=== PATIENT | male | born 1960 | race Hispanic/Latino ===

== ENCOUNTER → 2020-05-05 | Outpatient (CLI) | payer OTHER | END | disposition home or self-care (01) | LOC: RAD 11:48 | PROVIDERS: ATTEND Orthopaedic Surgery | DX: M17.11 Unilateral primary osteoarthritis, right knee (principal) | CPT/HCPCS: 73700 ==

== ENCOUNTER 2020-06-07 08:00 | Inpatient (IN) | payer MEDICARE ==
[2020-06-03 16:20] VITALS: BP 138/85
[2020-06-03 16:55] LABS: BASOPHIL # 0.1 10^3/uL (0.0-0.1); BASOPHIL % 0.5 % (0.0-0.2); EOSINOPHIL # 0.3 10^3/uL (0.0-0.2); EOSINOPHIL % 3.1 % (0.0-5.0); LYMPHOCYTES # 2.36 10^3/uL1 (1.0-4.8); LYMPHOCYTES % 22.6 % (24.0-44.0); MEAN CORP HGB 31.2 pg (26-34); MONOCYTES # 0.8 10^3/uL (0.3-0.8); MONOCYTES % 7.9 % (5.0-12.0); NEUTROPHIL # 6.8 10^3/uL (1.8-7.7); NEUTROPHILS % 65.5 % (41.0-85.0); PLATELET COUNT 303 10^3/uL (150-400); RED CELL DISTRIBUTION WIDTH 13.2 % (11.5-14.5)
[2020-06-03 17:11] LABS: CALCIUM 9.3 mg/dL (8.4-10.5); CARBON DIOXIDE 22.6 mmol/L (20.0-32)
[2020-06-07] VITALS (13 sets, daily range): BP systolic 110–152; BP diastolic 56–85
[~2020-06-07] VITALS: Ht 172.7 cm; Wt 112.5 kg
[2020-06-07] MEDS: LACTATED RINGERS 1,000 ML IV SCH ×2 (06:14→16:00)
--- NOTE | 2020-06-07 06:27 | PCM.EKG ---
[facility] Test Date: 2020-06-07 Test Time: 06:05:28 Pat Name: TONY ALCANTAR Department: Room: Gender: M Braille Translator: MICHELLE : 1960 Requested By: DAPHNEY FERRO Order Number: [id number] Reading MD: Measurements Intervals Sultana Rate: 89 P: 49 NM: 178 QRS: 28 QRSD: 116 T: 39 QT: 376 QTc: 458 Interpretive Statements Sinus rhythm Ventricular premature complex Nonspecific intraventricular conduction delay No previous ECG available for comparison Please click the below link to view image of tracing.
[~2020-06-07 08:00] MED LIST: ACET1TAB34 PO; AMIT150T PO; ANCEF ONE; BACTROBAN OINTMENT TP SCH; CILO100T PO; DIPRIVAN IV ONE; EXPAREL 266 MG/20 ML VIAL IJ ONE; GABA600T7 PO; HYDR200T5 PO; HYDR25TA PO; LISI30TA4 PO; METF500T17 PO; METH25VI22 IJ; NS 100ML 100 ML IV ONE; NS 250ML 250 ML IV ONE; NS 3000ML IRR IR ONE; SERT50TA PO; SODIUM CHLORIDE IRR BOTTLE IR ONE; SUBLIMAZE ONE; TEST200V3 IM; VERSED ONE; WATER ONE
[2020-06-07] MEDS ORDERED: ULTRAM PO SCH (09:00)
[2020-06-07] MEDS ORDERED: LACTATED RINGERS 1,000 ML IV SCH (09:00)
[2020-06-07] MEDS: PEPCID PO SCH (09:00)
[2020-06-07] MEDS ORDERED: CEPACOL SORE THROAT LOZENGE MM PRN (09:00)
[2020-06-07] MEDS: COLACE PO SCH (09:00)
[2020-06-07] MEDS ORDERED: ULTRAM PO PRN (09:00)
--- NOTE | 2020-06-07 09:19 | PCM.HP ---
History of Present Illness Reason for Visit: (1) Osteoarthritis of right knee ICD Code: M17.11 - Unilateral primary osteoarthritis, right knee SNOMED: [id number] Was this Problem Present on Ad: Yes-DX present @time ofIP Hx of Present Illness patient complains of worsening knee pain for the past 2 years. Denies any injury to knee. Patient has tried cortisone injection, physical therapy and a knee brace with little relief. Patient takes Tylenol #3 for joint pain. Patient has a history of smoking. Lives at home with . No assistive devices. Review of Systems Constitutional: No: Fever, Chills, Sweats, Weakness, Malaise, Other Eyes: No: Pain, Vision change, Conjunctivae inflammation, Eyelid inflammation, Other, Redness ENT: No: Ear pain, Ear discharge, Nose pain, Nose discharge, Nose congestion, M outh pain, Mouth swelling, Throat pain, Throat swelling, Other Respiratory: No: Cough, Dry, Shortness of breath, SOB with excertion, Wheezing, Hemoptysis, Pleuritic Pain, Sputum, Wheezing, Other Cardiovascular: No: Chest Pain, Palpitations, Orthopnea, Paroxysmal Noc. Dyspnea, Edema, Lt Headedness, Other Gastrointestinal: No: Nausea, Vomiting, Abdominal Pain, Diarrhea, Constipation, Melena, Hematochezia, Other Genitourinary: No Dysuria, No Frequency, No Incontinence, No Hematuria, No Retention, No Other Musculoskeletal: leg pain (right knee pain) Skin: No: Rash, Lesions, Jaundice, Bruising, Other Neurological: No: Weakness, Numbness, Incoordination, Change in speech, Confusion, Seizures, Other Allergies: Coded Allergies: No Known Allergies (Unverified , 06/03/20) Scheduled Acetaminophen With Codeine (Tylenol-Cod #3 Tablet), 1 TAB PO TID, (Reported) Amitriptyline Hcl (Amitriptyline Hcl), 2 TAB PO HS, (Reported) Cilostazol (Cilostazol), 0.5 TAB PO BID, (Reported) Gabapentin (Gabapentin), 2 TAB PO TID, (Reported) Hydroxychloroquine Sulfate (Hydroxychloroquine Sulfate), 1 TAB PO BID, (Reported) Lisinopril (Lisinopril), 1 TAB PO DAILY, (Reported) Metformin Hcl (Metformin Hcl), 1 TAB PO BID, (Reported) Methotrexate Sodium (Methotrexate), 50 MG IJ Q7D, (Reported) Sertraline Hcl (Zoloft), 1 TAB PO HS, (Reported) Testosterone Cypionate (Testosterone Cypionate), 200 MG IM Q7D, (Reported) Scheduled PRN Hydroxyzine Hcl (Hydroxyzine Hcl), 2 TAB PO TID PRN for ANXIETY, (Reported) VTE VTE Risk Total Score: 3 VTE Risk Score VTE Risk: Score 0-1 = Low Risk (Aggressive mobilization; early ambulation; no VTE prophylaxis required) Score 2: Moderate Risk (Intermittent/Pneumatic Compression Device OR Lovenox/Heparin/Coumadin) Score 3-4: High Risk (Intermittent/Pneumatic Compression Device AND Lovenox/Heparin/Coumadin) Score > or =5: Highest Risk (Intermittent/Pneumatic Compression Device AND Lovenox/Heparin/Coumadin) VTE VTE Present on Admission: No Currently receiving anticoagul: No VTE Risk Total Score: 3 Exam Vital Signs Vital Signs Date Time Temp Pulse Resp B/P (MAP) Pulse Ox O2 Delivery O2 Flow Rate FiO2 06/07/20 07:47 79 18 132/67 (88) 97 Nasal Canula 2 06/07/20 06:07 96.7 General Appearance: Alert, Oriented X3, Cooperative, No acute distress HEENT: Atraumatic, PERRLA Respiratory: Clear to auscultation, Normal air movement Cardiovascular: Regular rate, Normal S1, Normal S2, No murmurs Abdominal: Normal bowel sounds, Soft, No hepatospenomegaly Extremities: No clubbing, No cyanosis, No edema, Normal pulses, Other (right knee 1-2 + effusion, full extension, 110 degrees flexion. Moderate crepitation.) Skin: No rash, No breakdown, No lesions Neuro: Normal gait, Normal speech Assessment/Plan Assessment/Plan Problems: (1) Osteoarthritis of right knee ICD Code: M17.11 - Unilateral primary osteoarthritis, right knee SNOMED: [id number] Patient History: Cerebrovascular disorder G8 FATHER, , Age:55 Hypertension G8 SISTER No known health problems G8 BROTHER G8 BROTHER G8 BROTHER G8 BROTHER G8 BROTHER G8 SISTER G8 SISTER 19 CHILD 19 CHILD 19 CHILD 19 CHILD 19 CHILD No Family History of: Alzheimer's disease Asthma Chronic obstructive pulmonary disease Congestive heart failure Diabetes insipidus Diabetes mellitus Parkinson's disease Plan Right knee OA- surgery planned for today of right TKA admit to floor after surgery continue medications. Scheduled pain medication and PRN. PT/OT- eval and treat, WBAT cindy BOLTON KRISTEN H NP Jun 07, 2020 09:19
[2020-06-07] MEDS ORDERED: METHOTREXATE IJ SCH (09:30)
[2020-06-07] MEDS ORDERED: DILAUDID IV PRN ×2 (09:30→11:30)
[2020-06-07] MEDS ORDERED: TYLENOL #4 PO PRN (09:30)
[2020-06-07] MEDS ORDERED: BRIDION IV ONE (10:20)
[2020-06-07] MEDS ORDERED: DECADRON ONE (11:09)
[2020-06-07] MEDS: NS 1000ML 1,000 ML IV SCH ×2 (11:10→21:49)
[2020-06-07] MEDS ORDERED: TRANEXAMIC ACID ONE (11:10)
[2020-06-07] MEDS ORDERED: LIDOCAINE 2% VIAL ONE (11:10)
[2020-06-07] MEDS ORDERED: ZOFRAN ONE (11:10)
[2020-06-07] MEDS ORDERED: ROCURONIUM BROMIDE IV ONE (11:11)
[2020-06-07] MEDS ORDERED: NS 1000ML 1,000 ML ONE (11:12)
--- NOTE | 2020-06-07 11:21 | OPH ---
DATE OF SURGERY: 06/07/2020 PREOPERATIVE DIAGNOSIS: Osteoarthritis of the right knee. POSTOPERATIVE DIAGNOSIS: Osteoarthritis of the right knee. OPERATIVE PROCEDURE: Right total knee arthroplasty using Medacta Sphere knee, size 5 femoral component, a size 5 tibial component, a 14 mm insert. All components were cemented with antibiotic containing cement. SURGEON: Noah Henderson MD ANESTHESIA: General endotracheal. TOURNIQUET TIME: 68 minutes at 300 mmHg. DRAINS: None. BLOOD LOSS: 300 mL. DESCRIPTION OF INDICATIONS: The patient is a 59-year-old male. He has had pain about the right knee for the last 2 years, getting progressively worse. He also has a history of RA. He sees Dr. Herman in [place]. He takes Tylenol No. 3 as well as gabapentin and methotrexate and hydroxychloroquine. The patient has pain at night as well as pain with just household ambulation. He is no better with physical therapy, bracing, cortisone injections. He complains of limping and inability to do his daily activities. The patient's exam shows that he has a 1-2+ effusion about the right knee. He has full extension with about 110 degrees of flexion, mild crepitation, good medial and lateral stability. The x-rays show that he is [id number] medially with some peripheral osteophytes about the patellofemoral joint. Because of the degree of pain as well as his limitations and failure of conservative treatment, he was taken to the operating room for total knee arthroplasty. DESCRIPTION OF PROCEDURE: The patient was placed on the operating table in the supine position. A general endotracheal anesthetic was induced without difficulty. The patient had the right thigh padded and the right lower extremity was sterilely prepped and draped. The leg was exsanguinated and then the tourniquet was inflated to 300 mmHg. The patient had the knee flexed to 90 degrees. Anterior incision was made centered over the patella. Incision was taken through the skin and the subcutaneous tissues. Full-thickness flaps were developed medially and laterally. A medial parapatellar arthrotomy was performed and the patella was deviated laterally. The capsule and the MCL were released around the posteromedial corner of his proximal tibia. Medial and lateral meniscectomies were performed. His anterior and posterior cruciate ligaments were excised. The patient had the Holograam femoral cutting guide placed about the distal femur. The distal femoral cut was then made with the power saw. The patient had the #2 jig size 5 applied to the distal femur and held into position with 2 pins and 2 screws. The anterior and posterior femoral cuts as well as the chamfer cuts were made. The patient then had the tibia subluxed anteriorly using the bent knee retractor. The tibial guide was placed about the proximal tibia and held into position with multiple pins. The proximal tibia cut was made with the power saw. The patient had the flexion and extension blocks used and the 10 mm block seemed to have good fit. The patient then had the tibial trial sized and the size 5 tibia had good coverage. The central drill hole was made with the reamer and then the cruciate punch was used to stabilize the trial tibial component. The patient then had the size 5 femoral component impacted. We started with a size 10 insert and worked up to a 14. He seemed to have some anterior and posterior instability at the smaller thickness inserts, the 14 had good stability and allowed full extension. The patient then had the patella everted. There was excellent tracking of the patella, minimal articular cartilage damage about the patella, so we trimmed the peripheral osteophytes and cauterized the edge of the patella. The patient then had the final medial and lateral femoral drill holes made. The femoral sulcus cut was made. The patient had the wounds copiously irrigated and the bone ends were dried. A size 5 tibial component was cemented into position. The 14 mm insert was then impacted into position and secured with an anterior screw. The size 5 femoral component was likewise cemented into position using antibiotic-containing cement. Once all the excess cement was removed and the cement had hardened, then the tourniquet was released and the bleeding was controlled with the Aquamantys. The joint was irrigated with Betadine-containing solution for 3 minutes. The patient then had the capsule closed with a #2 PDS in an interrupted [id number] manner. The patient's subcutaneous was closed with 2-0 barbed Monocryl in a running manner and then the skin was closed with jarad. A suction Prevena type dressing was applied. The patient was extubated in the operating room, sent to recovery in stable condition. Noah Henderson MD DR: ANIA/nicola JOB# [id number]
[2020-06-07] MEDS ORDERED: PHENERGAN IV PRN (11:30)
[2020-06-07] MEDS ORDERED: SUBLIMAZE IV PRN (11:30)
[2020-06-07] MEDS ORDERED: TYLENOL #4 PO SCH (11:30)
--- NOTE | 2020-06-07 11:38 | DIREP ---
PROCEDURE:XRAY KNEE 2 VWS-RT COMPARISON:None. INDICATIONS:post surgical TKR FINDINGS: BONES:AP and lateral views of the right knee. A 2 component right knee arthroplasty noted. The right knee is in mild valgus angulation. Alignment is satisfactory. Postoperative skin jarad, joint effusion and postoperative air noted. There is mild periarticular soft tissue swelling seen. The tibial component is likely cemented. JOINTS:Small joint effusion with postoperative drain and postoperative air identified. SOFT TISSUES:Periarticular mild soft tissue swelling seen. OTHER:No additional findings. CONCLUSION:Satisfactory appearance of the right knee arthroplasty. Dictated by: Jefe Zamudio MD on 06/07/2020 at 11:35 AM
--- NOTE | 2020-06-07 12:05 | NUR ---
ARRIVAL PT ARRIVED TO ROOM 337, SPECIAL V/S STARTED, NO S/S OF DISTRESS NOTED. WILL CONT TO MONITOR, CALL LIGHT WITHIN REACH. BED LOCKED AND LOW POSITION.
[2020-06-07] MEDS ORDERED: ANCEF 2 GM/D5W 50ML IV SCH (14:00)
[2020-06-07] MEDS ORDERED: TYLENOL #3 PO SCH (15:00)
[2020-06-07] MEDS: TYLENOL #4 PO PRN ×2 (15:18→19:35)
[2020-06-07] MEDS: ANCEF 1 GM in NS 100ML 100 ML IV SCH ×2 (15:30→21:59)
--- NOTE | 2020-06-07 18:08 | PRM.PN ---
Subjective Subjective Date: Jun 07, 2020 Time: 18:08 Subjective Awake and alert VSS NVM+ Stable Pain ok now Patient History: Cerebrovascular disorder G8 FATHER, , Age:55 Hypertension G8 SISTER No known health problems G8 BROTHER G8 BROTHER G8 BROTHER G8 BROTHER G8 BROTHER G8 SISTER G8 SISTER 19 CHILD 19 CHILD 19 CHILD 19 CHILD 19 CHILD No Family History of: Alzheimer's disease Asthma Chronic obstructive pulmonary disease Congestive heart failure Diabetes insipidus Diabetes mellitus Parkinson's disease VTE VTE Risk Total Score: 3 VTE Risk Score VTE Risk: Score 0-1 = Low Risk (Aggressive mobilization; early ambulation; no VTE prophylaxis required) Score 2: Moderate Risk (Intermittent/Pneumatic Compression Device OR Lovenox/Heparin/Coumadin) Score 3-4: High Risk (Intermittent/Pneumatic Compression Device AND Lovenox/Heparin/Coumadin) Score > or =5: Highest Risk (Intermittent/Pneumatic Compression Device AND Lovenox/Heparin/Coumadin) Review of Systems Constitutional: No: Fever, Chills, Sweats, Weakness, Malaise, Other Eyes: No: Pain, Vision change, Conjunctivae inflammation, Eyelid inflammation, Other, Redness ENT: No: Ear pain, Ear discharge, Nose pain, Nose discharge, Nose congestion, Mouth pain, Mouth swelling, Throat pain, Throat swelling, Other Respiratory: No: Cough, Dry, Shortness of breath, SOB with excertion, Wheezing, Hemoptysis, Pleuritic Pain, Sputum, Wheezing, Other Cardiovascular: No: Chest Pain, Palpitations, Orthopnea, Paroxysmal Noc. Dyspnea, Edema, Lt Headedness, Other Gastrointestinal: No: Nausea, Vomiting, Abdominal Pain, Diarrhea, Constipation, Melena, Hematochezia, Other Genitourinary: No Dysuria, No Frequency, No Incontinence, No Hematuria, No Retention, No Other Musculoskeletal: leg pain (right knee pain) Skin: No: Rash, Lesions, Jaundice, Bruising, Other Neurological: No: Weakness, Numbness, Incoordination, Change in speech, Confusion, Seizures, Other Allergies: Coded Allergies: No Known Allergies (Unverified , 06/03/20) Scheduled Acetaminophen With Codeine (Tylenol-Cod #3 Tablet), 1 TAB PO TID, (Reported) Amitriptyline Hcl (Amitriptyline Hcl), 2 TAB PO HS, (Reported) Cilostazol (Cilostazol), 0.5 TAB PO BID, (Reported) Gabapentin (Gabapentin), 2 TAB PO TID, (Reported) Hydroxychloroquine Sulfate (Hydroxychloroquine Sulfate), 1 TAB PO BID, (Reported) Lisinopril (Lisinopril), 1 TAB PO DAILY, (Reported) Metformin Hcl (Metformin Hcl), 1 TAB PO BID, (Reported) Methotrexate Sodium (Methotrexate), 50 MG IJ Q7D, (Reported) Sertraline Hcl (Zoloft), 1 TAB PO HS, (Reported) Testosterone Cypionate (Testosterone Cypionate), 200 MG IM Q7D, (Reported) Scheduled PRN Hydroxyzine Hcl (Hydroxyzine Hcl), 2 TAB PO TID PRN for ANXIETY, (Reported) Objective Vitals and I/O Vital Sign - Last 24 Hours 06/07/20 06/07/20 06/07/20 06/07/20 06:07 06:07 07:36 07:40 Temp 96.7 Pulse 94 79 64 Resp 18 18 18 B/P (MAP) 113/67 (82) 131/83 (99) 122/71 (88) Pulse Ox 97 100 99 O2 Delivery Room Air Room Air Nasal Canula Nasal Canula O2 Flow Rate 2 2 06/07/20 06/07/20 06/07/20 06/07/20 07:47 10:55 10:55 11:05 Temp 97.8 97.8 Pulse 79 84 82 Resp 18 16 18 B/P (MAP) 132/67 (88) 110/56 (74) 121/61 (81) Pulse Ox 97 100 100 O2 Delivery Nasal Canula Non-Rebreather Non-Rebreather O2 Flow Rate 2 15 15 10 06/07/20 06/07/20 06/07/20 06/07/20 11:15 11:25 11:35 11:45 Temp 97.6 97.6 98.0 98.6 Pulse 78 81 77 78 Resp 18 19 18 17 B/P (MAP) 113/63 (80) 142/84 (103) 137/85 (102) 144/85 (104) Pulse Ox 100 100 97 95 O2 Delivery Non-Rebreather Non-Rebreather Room Air Room Air O2 Flow Rate 10 10 06/07/20 06/07/20 06/07/2031/20 11:55 12:05 12:38 13:17 Temp 98.0 97.7 Pulse 74 76 Resp 18 19 16 B/P (MAP) 137/80 (99) 134/80 (98) Pulse Ox 97 97 97 O2 Delivery Room Air Room Air Room Air General: Alert, Oriented X3, Cooperative, No acute distress HEENT: Atraumatic, PERRLA Lungs: Clear to auscultation, Normal air movement Heart: Regular rate, Normal S1, Normal S2, No murmurs Abdomen: Normal bowel sounds, Soft, No hepatospenomegaly Extremities: No clubbing, No cyanosis, No edema, Normal pulses, Other (right knee 1-2 + effusion, full extension, 110 degrees flexion. Moderate crepitation.) Neuro: Normal gait, Normal speech All Results(Lab/Rad) Laboratory Tests Test 06/07/20 06:16 06/07/20 10:58 Bedside Glucose 141 150 Current Medications Medications (Trade) Dose Ordered Sig/Justus Route PRN Reason Start Time Stop Time Status Last Admin Dose Admin Sodium Chloride 250 ml @ ud STK-MED ONCE IV 06/04/20 11:11 06/04/20 11:12 DC Cefazolin Sodium (Ancef) 1 gm STK-MED ONCE .ROUTE 06/04/20 11:11 06/04/20 11:13 DC Sodium Chloride 100 ml @ ud STK-MED ONCE IV 06/04/20 12:47 06/04/20 12:49 DC Mupirocin (Bactroban Ointment) 1 gm OT TP 06/07/20 06:00 07/07/20 05:59 06/07/20 06:23 Sodium Chloride (Sodium Chloride Irr Bottle) 1,000 ml STK-MED ONCE IR 06/07/20 07:02 06/07/20 07:04 DC Sterile Water (Water) 1,000 ml STK-MED ONCE .ROUTE 06/07/20 07:02 06/07/20 07:04 DC Sodium Chloride 100 ml @ ud STK-MED ONCE IV 06/07/20 07:02 06/07/20 07:04 DC Sodium Chloride 250 ml @ ud STK-MED ONCE IV 06/07/20 07:02 06/07/20 07:04 DC Sodium Chloride (NS 3000ml Irr) 3,000 ml STK-MED ONCE IR 06/07/20 07:02 06/07/20 07:04 DC Fentanyl Citrate (Sublimaze) 50 mcg STK-MED ONCE .ROUTE 06/07/20 07:29 06/07/20 07:31 DC Propofol (Diprivan) 200 mg STK-MED ONCE IV 06/07/20 07:57 06/07/20 08:00 DC Tramadol HCl (Ultram) 50 mg Q6H PO 06/07/20 09:00 06/07/20 09:22 DC Tramadol HCl (Ultram) 100 mg Q6H PRN PO PAIN 4 - 6 06/07/20 09:00 06/07/20 09:22 DC Rivaroxaban (Xarelto) 10 mg DAILY PO 06/08/20 09:00 07/08/20 08:59 Docusate Sodium (Colace) 100 mg DAILY PO 06/07/20 09:00 07/07/20 08:59 Throat Lozenges (Cepacol Sore Throat Lozenge) 1 each PRN PRN MM SORE THROAT 06/07/20 09:00 07/07/20 08:59 Famotidine (Pepcid) 20 mg DAILY PO 06/07/20 09:00 07/07/20 08:59 Cefazolin Sodium/ Dextrose (Ancef 2 Gm/D5W 50ml) 2 gm Q8 IV 06/07/20 14:00 06/07/20 13:59 DC Acetaminophen/ Codeine Phosphate (Tylenol #3) 1 each TID PO 06/07/20 15:00 06/07/20 11:06 DC Hydroxychloroquine Sulfate (Plaquenil) 200 mg BID PO 06/07/20 21:00 07/07/20 20:59 Future Hold Metformin HCl (Glucophage) 500 mg BID PO 06/07/20 21:00 07/07/20 20:59 Methotrexate (Methotrexate) 50 mg Q7D IJ 06/07/20 09:30 06/07/20 11:06 DC Sertraline HCl (Zoloft) 50 mg HS PO 06/07/20 21:00 07/07/20 20:59 Acetaminophen/ Codeine Phosphate (Tylenol #4) 1 tablet Q4H PRN PO PAIN 7 - 10 06/07/20 09:30 06/07/20 11:06 DC Hydromorphone HCl (Dilaudid) 1 mg Q4H PRN IV PAIN 7 - 10 06/07/20 09:30 06/07/20 11:06 DC Hydromorphone HCl (Dilaudid) 0.2 mg Q5M PRN IV PAIN 1 - 3 06/07/20 11:30 06/07/20 17:15 DC 06/07/20 11:35 Fentanyl Citrate (Sublimaze) 12.5 mcg Q5MIN PRN IV PAIN 06/07/20 11:30 06/07/20 17:15 DC Promethazine HCl (Phenergan) 12.5 mg PRN PRN IV NAUSEA / VOMITING 06/07/20 11:30 06/07/20 13:18 DC Acetaminophen/ Codeine Phosphate (Tylenol #4) 1 tablet Q4H PO 06/07/20 11:30 07/07/20 09:29 Hydromorphone HCl (Dilaudid) 3 mg Q4H PRN IV PAIN 7 - 10 06/07/20 11:30 07/07/20 11:29 Acetaminophen/ Codeine Phosphate (Tylenol #4) 2 tablet Q4H PRN PO PAIN 7 - 10 06/07/20 11:30 07/07/20 11:29 06/07/20 15:18 Lidocaine HCl (Lidocaine 2% Vial) 500 mg STK-MED ONCE .ROUTE 06/07/20 11:10 06/07/20 11:12 DC Tranexamic Acid (Tranexamic Acid) 1,000 mg STK-MED ONCE .ROUTE 06/07/20 11:10 06/07/20 11:12 DC Ondansetron HCl (Zofran) 4 mg STK-MED ONCE .ROUTE 06/07/20 11:10 06/07/20 11:12 DC Rocuronium Jenkins (Rocuronium Jenkins) 50 mg STK-MED ONCE IV 06/07/20 11:11 06/07/20 11:12 DC Sodium Chloride 1,000 ml @ ud STK-MED ONCE .ROUTE 06/07/20 11:12 06/07/20 11:14 DC Sodium Chloride 1,000 ml @ 100 mls/hr Q10H IV 06/07/20 11:00 07/07/20 10:59 06/07/20 11:10 Cefazolin Sodium 1 gm/Sodium Chloride 100 ml @ 100 mls/hr Q8 IV 06/07/20 14:00 06/08/20 06:59 06/07/20 15:30 Course Sepsis Screening Results: Posi: NEGATIVE Sepsis Qualifier/Stage: NO DEFINITE RISK Vitals & review Data Vital Sign - Last 24 Hours 06/07/20 06/07/20 06/07/20 06/07/20 06:07 06:07 07:36 07:40 Temp 96.7 Pulse 94 79 64 Resp 18 18 18 B/P (MAP) 113/67 (82) 131/83 (99) 122/71 (88) Pulse Ox 97 100 99 O2 Delivery Room Air Room Air Nasal Canula Nasal Canula O2 Flow Rate 2 2 06/07/20 06/07/20 06/07/20 06/07/20 07:47 10:55 10:55 11:05 Temp 97.8 97.8 Pulse 79 84 82 Resp 18 16 18 B/P (MAP) 132/67 (88) 110/56 (74) 121/61 (81) Pulse Ox 97 100 100 O2 Delivery Nasal Canula Non-Rebreather Non-Rebreather O2 Flow Rate 2 15 15 10 06/07/20 06/07/20 06/07/20 06/07/20 11:15 11:25 11:35 11:45 Temp 97.6 97.6 98.0 98.6 Pulse 78 81 77 78 Resp 18 19 18 17 B/P (MAP) 113/63 (80) 142/84 (103) 137/85 (102) 144/85 (104) Pulse Ox 100 100 97 95 O2 Delivery Non-Rebreather Non-Rebreather Room Air Room Air O2 Flow Rate 10 10 06/07/20 06/07/20 06/07/20 06/07/20 11:55 12:05 12:38 13:17 Temp 98.0 97.7 Pulse 74 76 Resp 18 19 16 B/P (MAP) 137/80 (99) 134/80 (98) Pulse Ox 97 97 97 O2 Delivery Room Air Room Air Room Air Laboratory Tests Test 06/07/20 06:16 06/07/20 10:58 Bedside Glucose 141 150 Current Medications Medications (Trade) Dose Ordered Sig/Justus PRN Reason Start Time Stop Time Status Last Admin Acetaminophen/ Codeine Phosphate (Tylenol #4) 1 tablet Q4H 06/07/20 11:30 07/07/20 09:29 Acetaminophen/ Codeine Phosphate (Tylenol #4) 2 tablet Q4H PRN PAIN 7 - 10 06/07/20 11:30 07/07/20 11:29 06/07/20 15:18 Cefazolin Sodium 1 gm/Sodium Chloride 100 ml @ 100 mls/hr Q8 06/07/20 14:00 06/08/20 06:59 06/07/20 15:30 Docusate Sodium (Colace) 100 mg DAILY 06/07/20 09:00 07/07/20 08:59 Famotidine (Pepcid) 20 mg DAILY 06/07/20 09:00 07/07/20 08:59 Hydromorphone HCl (Dilaudid) 3 mg Q4H PRN PAIN 7 - 10 06/07/20 11:30 07/07/20 11:29 Hydroxychloroquine Sulfate (Plaquenil) 200 mg BID 06/07/20 21:00 07/07/20 20:59 Future Hold Metformin HCl (Glucophage) 500 mg BID 06/07/20 21:00 07/07/20 20:59 Mupirocin (Bactroban Ointment) 1 gm OT 06/07/20 06:00 07/07/20 05:59 06/07/20 06:23 Rivaroxaban (Xarelto) 10 mg DAILY 06/08/20 09:00 07/08/20 08:59 Sertraline HCl (Zoloft) 50 mg HS 06/07/20 21:00 07/07/20 20:59 Sodium Chloride 1,000 ml @ 100 mls/hr Q10H 06/07/20 11:00 07/07/20 10:59 06/07/20 11:10 Throat Lozenges (Cepacol Sore Throat Lozenge) 1 each PRN PRN SORE THROAT 06/07/20 09:00 07/07/20 08:59 LEVEL 1 SEPSIS INFECTION CRITE: ABX Therapy, Recent Invasive Procedure LEVEL 2-SIRS (LIST ALL THAT AP: None/Not assessed O2 Sat by Pulse Oximetry: 97 Oxygen Flow Rate: 10 Assessment/Plan Assessment/Plan Assessment/Plan Right knee OA- surgery planned for today of right TKA admit to floor after surgery continue medications. Scheduled pain medication and PRN. PT/OT- eval and treat, WBcindy HERNANDEZ Plan Right knee OA- surgery planned for today of right TKA admit to floor after surgery continue medications. Scheduled pain medication and PRN. PT/OT- eval and treat, WBcindy HERNANDEZ DAVID M MD Jun 07, 2020 18:08
[2020-06-07] MEDS ORDERED: PLAQUENIL PO SCH (21:00)
[2020-06-07] MEDS: ZOLOFT PO SCH (21:50)
[2020-06-07] MEDS: GLUCOPHAGE PO SCH (21:50)
[2020-06-07] MEDS ORDERED: NEURONTIN PO SCH (23:30)
[2020-06-07] MEDS ORDERED: ELAVIL PO SCH (23:30)
[2020-06-07] MEDS ORDERED: ELAVIL ONE (23:31)
[2020-06-07] MEDS: ELAVIL PO SCH (23:35)
[2020-06-07] MEDS: NEURONTIN PO SCH (23:35)
[2020-06-07] MEDS: DILAUDID IV PRN (23:53)
[2020-06-08 01:43] VITALS: BP 158/80
[2020-06-08 05:10] VITALS: BP 154/82
[2020-06-08 05:27] LABS: MEAN CORP HGB 31.8 pg (26-34); RED CELL DISTRIBUTION WIDTH 13.3 % (11.5-14.5)
[2020-06-08 05:46] LABS: CALCIUM 8.3 mg/dL (8.4-10.5); CARBON DIOXIDE 25.2 mmol/L (20.0-32)
[2020-06-08] MEDS: NS 1000ML 1,000 ML IV SCH ×2 (07:00→17:00)
[2020-06-08] MEDS: ANCEF 1 GM in NS 100ML 100 ML IV SCH (07:28)
[2020-06-08] MEDS: COLACE PO SCH (08:45)
[2020-06-08] MEDS: XARELTO PO SCH (08:45)
[2020-06-08] MEDS: GLUCOPHAGE PO SCH ×2 (08:45→21:43)
[2020-06-08] MEDS: NEURONTIN PO SCH ×3 (08:45→21:43)
[2020-06-08] MEDS: PEPCID PO SCH (08:45)
--- NOTE | 2020-06-08 09:06 | PRM.PN ---
Subjective Subjective Date: Jun 08, 2020 Time: 09:03 Subjective patient laying in bed, appetite good c/o some pain to right knee dressing intact labs reviewed; stable Patient History: Cerebrovascular disorder G8 FATHER, , Age:55 Hypertension G8 SISTER No known health problems G8 BROTHER G8 BROTHER G8 BROTHER G8 BROTHER G8 BROTHER G8 SISTER G8 SISTER 19 CHILD 19 CHILD 19 CHILD 19 CHILD 19 CHILD No Family History of: Alzheimer's disease Asthma Chronic obstructive pulmonary disease Congestive heart failure Diabetes insipidus Diabetes mellitus Parkinson's disease VTE VTE Risk Total Score: 3 VTE Risk Score VTE Risk: Score 0-1 = Low Risk (Aggressive mobilization; early ambulation; no VTE prophylaxis required) Score 2: Moderate Risk (Intermittent/Pneumatic Compression Device OR Lovenox/Heparin/Coumadin) Score 3-4: High Risk (Intermittent/Pneumatic Compression Device AND Lovenox/Heparin/Coumadin) Score > or =5: Highest Risk (Intermittent/Pneumatic Compression Device AND Lovenox/Heparin/Coumadin) Review of Systems Constitutional: No: Fever, Chills, Sweats, Weakness, Malaise, Other Eyes: No: Pain, Vision change, Conjunctivae inflammation, Eyelid inflammation, Other, Redness ENT: No: Ear pain, Ear discharge, Nose pain, Nose discharge, Nose congestion, Mouth pain, Mouth swelling, Throat pain, Throat swelling, Other Respiratory: No: Cough, Dry, Shortness of breath, SOB with excertion, Wheezing, Hemoptysis, Pleuritic Pain, Sputum, Wheezing, Other Cardiovascular: No: Chest Pain, Palpitations, Orthopnea, Paroxysmal Noc. Dyspnea, Edema, Lt Headedness, Other Gastrointestinal: No: Nausea, Vomiting, Abdominal Pain, Diarrhea, Constipation, Melena, Hematochezia, Other Genitourinary: No Dysuria, No Frequency, No Incontinence, No Hematuria, No Retention, No Other Musculoskeletal: leg pain (right knee pain) Skin: No: Rash, Lesions, Jaundice, Bruising, Other Neurological: No: Weakness, Numbness, Incoordination, Change in speech, Co nfusion, Seizures, Other Allergies: Coded Allergies: No Known Allergies (Unverified , 06/03/20) Scheduled Acetaminophen With Codeine (Tylenol-Cod #3 Tablet), 1 TAB PO TID, (Reported) Amitriptyline Hcl (Amitriptyline Hcl), 2 TAB PO HS, (Reported) Cilostazol (Cilostazol), 0.5 TAB PO BID, (Reported) Gabapentin (Gabapentin), 2 TAB PO TID, (Reported) Hydroxychloroquine Sulfate (Hydroxychloroquine Sulfate), 1 TAB PO BID, (Reported) Lisinopril (Lisinopril), 1 TAB PO DAILY, (Reported) Metformin Hcl (Metformin Hcl), 1 TAB PO BID, (Reported) Methotrexate Sodium (Methotrexate), 50 MG IJ Q7D, (Reported) Sertraline Hcl (Zoloft), 1 TAB PO HS, (Reported) Testosterone Cypionate (Testosterone Cypionate), 200 MG IM Q7D, (Reported) Scheduled PRN Hydroxyzine Hcl (Hydroxyzine Hcl), 2 TAB PO TID PRN for ANXIETY, (Reported) Objective Vitals and I/O Vital Sign - Last 24 Hours 06/07/20 06/07/20 06/07/20 06/07/20 10:55 10:55 11:05 11:15 Temp 97.8 97.8 97.6 Pulse 84 82 78 Resp 16 18 18 B/P (MAP) 110/56 (74) 121/61 (81) 113/63 (80) Pulse Ox 100 100 100 O2 Delivery Non-Rebreather Non-Rebreather Non-Rebreather O2 Flow Rate 15 15 10 10 06/07/20 06/07/20 06/07/20 06/07/20 11:25 11:35 11:45 11:55 Temp 97.6 98.0 98.6 98.0 Pulse 81 77 78 74 Resp 19 18 17 18 B/P (MAP) 142/84 (103) 137/85 (102) 144/85 (104) 137/80 (99) Pulse Ox 100 97 95 97 O2 Delivery Non-Rebreather Room Air Room Air Room Air O2 Flow Rate 10 06/07/20 06/07/20 06/07/20 06/07/20 12:05 12:38 13:17 20:45 Temp 97.7 98.4 Pulse 76 94 Resp 19 16 18 B/P (MAP) 134/80 (98) 152/61 (91) Pulse Ox 97 97 99 O2 Delivery Room Air Room Air Room Air 06/07/20 06/07/20 06/08/2006/08/20 20:45 20:57 01:43 05:10 Temp 98.4 98.1 Pulse 100 90 91 Resp 18 18 18 B/P (MAP) 158/80 (106) 154/82 (106) Pulse Ox 97 94 93 O2 Delivery Room Air Room Air Room Air Room Air 06/08/20 08:36 Pulse 101 Resp 20 Pulse Ox 93 O2 Delivery Room Air FiO2 21 Intake and Output 06/08/20 07:00 Intake Total 8025 ml Output Total 1900 ml Balance 6125 ml General: Alert, Oriented X3, Cooperative, No acute distress HEENT: Atraumatic, PERRLA Lungs: Clear to auscultation, Normal air movement Heart: Regular rate, Normal S1, Normal S2, No murmurs Abdomen: Normal bowel sounds, Soft, No hepatospenomegaly Extremities: No clubbing, No cyanosis, No edema, Normal pulses, Other (right knee dressing intact, neuros intact, WBAT) Neuro: Normal gait, Normal speech All Results(Lab/Rad) Laboratory Tests Test 06/07/20 06:16 06/07/20 10:58 Bedside Glucose 141 150 Current Medications Medications (Trade) Dose Ordered Sig/Justus Route PRN Reason Start Time Stop Time Status Last Admin Dose Admin Sodium Chloride 250 ml @ ud STK-MED ONCE IV 06/04/20 11:11 06/04/20 11:12 DC Cefazolin Sodium (Ancef) 1 gm STK-MED ONCE .ROUTE 06/04/20 11:11 06/04/20 11:13 DC Sodium Chloride 100 ml @ ud STK-MED ONCE IV 06/04/20 12:47 06/04/20 12:49 DC Mupirocin (Bactroban Ointment) 1 gm OT TP 06/07/20 06:00 07/07/20 05:59 06/07/20 06:23 Sodium Chloride (Sodium Chloride Irr Bottle) 1,000 ml STK-MED ONCE IR 06/07/20 07:02 06/07/20 07:04 DC Sterile Water (Water) 1,000 ml STK-MED ONCE .ROUTE 06/07/20 07:02 06/07/20 07:04 DC Sodium Chloride 100 ml @ ud STK-MED ONCE IV 06/07/20 07:02 06/07/20 07:04 DC Sodium Chloride 250 ml @ ud STK-MED ONCE IV 06/07/20 07:02 06/07/20 07:04 DC Sodium Chloride (NS 3000ml Irr) 3,000 ml STK-MED ONCE IR 06/07/20 07:02 06/07/20 07:04 DC Fentanyl Citrate (Sublimaze) 50 mcg STK-MED ONCE .ROUTE 06/07/20 07:29 06/07/20 07:31 DC Propofol (Diprivan) 200 mg STK-MED ONCE IV 06/07/20 07:57 06/07/20 08:00 DC Tramadol HCl (Ultram) 50 mg Q6H PO 06/07/20 09:00 06/07/20 09:22 DC Tramadol HCl (Ultram) 100 mg Q6H PRN PO PAIN 4 - 6 06/07/20 09:00 06/07/20 09:22 DC Rivaroxaban (Xarelto) 10 mg DAILY PO 06/08/20 09:00 07/08/20 08:59 Docusate Sodium (Colace) 100 mg DAILY PO 06/07/20 09:00 07/07/20 08:59 Throat Lozenges (Cepacol Sore Throat Lozenge) 1 each PRN PRN MM SORE THROAT 06/07/20 09:00 07/07/20 08:59 Famotidine (Pepcid) 20 mg DAILY PO 06/07/20 09:00 07/07/20 08:59 Cefazolin Sodium/ Dextrose (Ancef 2 Gm/D5W 50ml) 2 gm Q8 IV 06/07/20 14:00 06/07/20 13:59 DC Acetaminophen/ Codeine Phosphate (Tylenol #3) 1 each TID PO 06/07/20 15:00 06/07/20 11:06 DC Hydroxychloroquine Sulfate (Plaquenil) 200 mg BID PO 06/07/20 21:00 07/07/20 20:59 Future Hold Metformin HCl (Glucophage) 500 mg BID PO 06/07/20 21:00 07/07/20 20:59 Methotrexate (Methotrexate) 50 mg Q7D IJ 06/07/20 09:30 06/07/20 11:06 DC Sertraline HCl (Zoloft) 50 mg HS PO 06/07/20 21:00 07/07/20 20:59 Acetaminophen/ Codeine Phosphate (Tylenol #4) 1 tablet Q4H PRN PO PAIN 7 - 10 06/07/20 09:30 06/07/20 11:06 DC Hydromorphone HCl (Dilaudid) 1 mg Q4H PRN IV PAIN 7 - 10 06/07/20 09:30 06/07/20 11:06 DC Hydromorphone HCl (Dilaudid) 0.2 mg Q5M PRN IV PAIN 1 - 3 06/07/20 11:30 06/07/20 17:15 DC 06/07/20 11:35 Fentanyl Citrate (Sublimaze) 12.5 mcg Q5MIN PRN IV PAIN 06/07/20 11:30 06/07/20 17:15 DC Promethazine HCl (Phenergan) 12.5 mg PRN PRN IV NAUSEA / VOMITING 06/07/20 11:30 06/07/20 13:18 DC Acetaminophen/ Codeine Phosphate (Tylenol #4) 1 tablet Q4H PO 06/07/20 11:30 07/07/20 09:29 Hydromorphone HCl (Dilaudid) 3 mg Q4H PRN IV PAIN 7 - 10 06/07/20 11:30 07/07/20 11:29 Acetaminophen/ Codeine Phosphate (Tylenol #4) 2 tablet Q4H PRN PO PAIN 7 - 10 06/07/20 11:30 07/07/20 11:29 06/07/20 15:18 Lidocaine HCl (Lidocaine 2% Vial) 500 mg STK-MED ONCE .ROUTE 06/07/20 11:10 06/07/20 11:12 DC Tranexamic Acid (Tranexamic Acid) 1,000 mg STK-MED ONCE .ROUTE 06/07/20 11:10 06/07/20 11:12 DC Ondansetron HCl (Zofran) 4 mg STK-MED ONCE .ROUTE 06/07/20 11:10 06/07/20 11:12 DC Rocuronium [place] (Rocuronium [place]) 50 mg STK-MED ONCE IV 06/07/20 11:11 06/07/20 11:12 DC Sodium Chloride 1,000 ml @ ud STK-MED ONCE .ROUTE 06/07/20 11:12 06/07/20 11:14 DC Sodium Chloride 1,000 ml @ 100 mls/hr Q10H IV 06/07/20 11:00 07/07/20 10:59 06/07/20 11:10 Cefazolin Sodium 1 gm/Sodium Chloride 100 ml @ 100 mls/hr Q8 IV 06/07/20 14:00 06/08/20 06:59 06/07/20 15:30 Course Sepsis Screening Results: Posi: NEGATIVE Sepsis Qualifier/Stage: NO DEFINITE RISK Vitals & review Data Vital Sign - Last 24 Hours 06/07/20 06/07/20 06/07/20 06/07/20 06:07 06:07 07:36 07:40 Temp 96.7 Pulse 94 79 64 Resp 18 18 18 B/P (MAP) 113/67 (82) 131/83 (99) 122/71 (88) Pulse Ox 97 100 99 O2 Delivery Room Air Room Air Nasal Canula Nasal Canula O2 Flow Rate 2 2 06/07/20 06/07/20 06/07/20 06/07/20 07:47 10:55 10:55 11:05 Temp 97.8 97.8 Pulse 79 84 82 Resp 18 16 18 B/P (MAP) 132/67 (88) 110/56 (74) 121/61 (81) Pulse Ox 97 100 100 O2 Delivery Nasal [place] Non-Rebreather Non-Rebreather O2 Flow Rate 2 15 15 10 06/07/20 06/07/20 06/07/20 06/07/20 11:15 11:25 11:35 11:45 Temp 97.6 97.6 98.0 98.6 Pulse 78 81 77 78 Resp 18 19 18 17 B/P (MAP) 113/63 (80) 142/84 (103) 137/85 (102) 144/85 (104) Pulse Ox 100 100 97 95 O2 Delivery Non-Rebreather Non-Rebreather Room Air Room Air O2 Flow Rate 10 10 06/07/20 06/07/20 06/07/20 06/07/20 11:55 12:05 12:38 13:17 Temp 98.0 97.7 Pulse 74 76 Resp 18 19 16 B/P (MAP) 137/80 (99) 134/80 (98) Pulse Ox 97 97 97 O2 Delivery Room Air Room Air Room Air Laboratory Tests Test 06/07/20 06:16 06/07/20 10:58 Bedside Glucose 141 150 Current Medications Medications (Trade) Dose Ordered Sig/Justus PRN Reason Start Time Stop Time Status Last Admin Acetaminophen/ Codeine Phosphate (Tylenol #4) 1 tablet Q4H 06/07/20 11:30 07/07/20 09:29 Acetaminophen/ Codeine Phosphate (Tylenol #4) 2 tablet Q4H PRN PAIN 7 - 10 06/07/20 11:30 07/07/20 11:29 06/07/20 15:18 Cefazolin Sodium 1 gm/Sodium Chloride 100 ml @ 100 mls/hr Q8 06/07/20 14:00 06/08/20 06:59 06/07/20 15:30 Docusate Sodium (Colace) 100 mg DAILY 06/07/20 09:00 07/07/20 08:59 Famotidine (Pepcid) 20 mg DAILY 06/07/20 09:00 07/07/20 08:59 Hydromorphone HCl (Dilaudid) 3 mg Q4H PRN PAIN 7 - 10 06/07/20 11:30 07/07/20 11:29 Hydroxychloroquine Sulfate (Plaquenil) 200 mg BID 06/07/20 21:00 07/07/20 20:59 Future Hold Metformin HCl (Glucophage) 500 mg BID 06/07/20 21:00 07/07/20 20:59 Mupirocin (Bactroban Ointment) 1 gm OT 06/07/20 06:00 07/07/20 05:59 06/07/20 06:23 Rivaroxaban (Xarelto) 10 mg DAILY 06/08/20 09:00 07/08/20 08:59 Sertraline HCl (Zoloft) 50 mg HS 06/07/20 21:00 07/07/20 20:59 Sodium Chloride 1,000 ml @ 100 mls/hr Q10H 06/07/20 11:00 07/07/20 10:59 06/07/20 11:10 Throat Lozenges (Cepacol Sore Throat Lozenge) 1 each PRN PRN SORE THROAT 06/07/20 09:00 07/07/20 08:59 LEVEL 1 SEPSIS INFECTION CRITE: ABX Therapy, Recent Invasive Procedure LEVEL 2-SIRS (LIST ALL THAT AP: HR>90/min O2 Sat by Pulse Oximetry: 93 Oxygen Flow Rate: 10 Assessment/Plan Assessment/Plan Assessment/Plan Plan Right knee OA- s/p right TKA post op #1 continue medications. Scheduled pain medication and PRN. PT/OT- eval and treat, WBAT RLE, walker labs scheduled JENNIFER SINGH NP Jun 08, 2020 09:06
[2020-06-08 09:10] VITALS: BP_SYST 158; BP_SYST 170; BP_DIAS 89; BP_DIAS 90
[2020-06-08] MEDS: DILAUDID IV PRN ×2 (09:50→17:03)
--- NOTE | 2020-06-08 10:30 | NUR ---
DISCHARGE PLAN CM VISITED WITH PATIENT AND HIS SPOUSE REGARDING D/C PLAN. PATIENT LIVES AT HOME WITH HIS SPOUSE IN [place]. HE WAS PREVIOUSLY INDEPENDENT OF ADLS. HE HAS A GLUCOMETER AND CANE IN PLACE. ORDER FOR WALKER WAS FAXED TO [facility] AND ALEKSANDR CARRILLO NOTIFIED. PATIENT EDUCATED ON HH AND OP/PT. CHOICE LETTER SIGNED FOR HOME CARE [facility]. JUSTIN GIRALDO NOTIFIED OF REFERRAL. DISCHARGE GOAL IS FOR PATIENT TO D/C BACK HOME WITH SPOUSE AND HOME CARE CONNECTIONS FOR FOLLOW. CM WILL CONTINUE TO MONITOR NEEDS OF PT.
[2020-06-08 11:13] VITALS: BP 148/81
[2020-06-08 16:30] VITALS: BP 162/83
[2020-06-08 20:04] VITALS: BP 130/76
[2020-06-08] MEDS ORDERED: ELAVIL ONE (21:38)
[2020-06-08] MEDS: ELAVIL PO SCH (21:42)
[2020-06-08] MEDS: ZOLOFT PO SCH (21:43)
[2020-06-08] MEDS: TYLENOL #4 PO PRN (21:45)
[2020-06-09 00:35] VITALS: BP 139/80
[2020-06-09] MEDS: TYLENOL #4 PO PRN ×2 (01:22→10:42)
[2020-06-09] MEDS: NS 1000ML 1,000 ML IV SCH ×3 (03:00→23:00)
[2020-06-09 05:03] VITALS: BP 117/66
[2020-06-09 05:15] LABS: RED CELL DISTRIBUTION WIDTH 13.1 % (11.5-14.5)
[2020-06-09 07:27] VITALS: BP 109/66
--- NOTE | 2020-06-09 08:25 | NUR ---
UPON MAKING ROUNDS WITH PATIENT IS NOT ALERT. PATIENT WILL OPEN EYES FOR A SECOND WHEN DOCTOR IS TALKING BUT WILL GO RIGHT BACK TO SLEEP EVEN WITH STERNAL RUBBING. VITAL SIGNS CHECKED AT THIS TIME FOLLOWS BP 144/74, P.97, RR 18, 02 IS 88% WITH PATIENT BREATHING THROUGH HIS MOUTH. THIS NURSE PUT NASAL CANNULA IN HIS MOUTH AT THIS TIME AND O2 SATURATION INCREASED TO 93%. GLUCOSE CHECKED AT THIS TIME ALSO WITH A RESULT OF 138. PATIENT DID NOT WAKE UP WHEN HE WAS POKED FOR AN ACCUCHECK. RECEIVED ORDERS FOR STAT CMP FROM JORGE THOMAS. NOTIFIED OF SITUATION. HE OBSERVED THE PATIENT FALLING ASLEEP WHEN BEING SPOKEN TO AND NOT BEING ABLE TO ANSWER QUESTIONS VERY WELL.
--- NOTE | 2020-06-09 08:31 | PRM.PN ---
Subjective Subjective Date: Jun 09, 2020 Time: 08:27 Subjective patient laying in bed, denies pain unable to get patient to answer questions due to sedation VSS, glucose 138, O2 88% RA labs reviewed stable; ordered CMP Patient History: Cerebrovascular disorder G8 FATHER, , Age:55 Hypertension G8 SISTER No known health problems G8 BROTHER G8 BROTHER G8 BROTHER G8 BROTHER G8 BROTHER G8 SISTER G8 SISTER 19 CHILD 19 CHILD 19 CHILD 19 CHILD 19 CHILD No Family History of: Alzheimer's disease Asthma Chronic obstructive pulmonary disease Congestive heart failure Diabetes insipidus Diabetes mellitus Parkinson's disease VTE VTE Risk Total Score: 3 VTE Risk Score VTE Risk: Score 0-1 = Low Risk (Aggressive mobilization; early ambulation; no VTE prophylaxis required) Score 2: Moderate Risk (Intermittent/Pneumatic Compression Device OR Lovenox/Heparin/Coumadin) Score 3-4: High Risk (Intermittent/Pneumatic Compression Device AND Lovenox/Heparin/Coumadin) Score > or =5: Highest Risk (Intermittent/Pneumatic Compression Device AND Lovenox/Heparin/Coumadin) Review of Systems Constitutional: No: Fever, Chills, Sweats, Weakness, Malaise, Other Eyes: No: Pain, Vision change, Conjunctivae inflammation, Eyelid inflammation, Other, Redness ENT: No: Ear pain, Ear discharge, Nose pain, Nose discharge, Nose congestion, Mouth pain, Mouth swelling, Throat pain, Throat swelling, Other Respiratory: No: Cough, Dry, Shortness of breath, SOB with excertion, Wheezing, Hemoptysis, Pleuritic Pain, Sputum, Wheezing, Other Cardiovascular: No: Chest Pain, Palpitations, Orthopnea, Paroxysmal Noc. Dyspnea, Edema, Lt Headedness, Other Gastrointestinal: No: Nausea, Vomiting, Abdominal Pain, Diarrhea, Constipation, Melena, Hematochezia, Other Genitourinary: No Dysuria, No Frequency, No Incontinence, No Hematuria, No Retention, No Other Musculoskeletal: leg pain (right knee pain) Skin: No: Rash, Lesions, Jaundice, Bruising, Other Neurological: No: Weakness, Numbness, Incoordination, Change in speech, Confusion, Seizures, Other Allergies: Coded Allergies: No Known Allergies (Unverified , 06/03/20) Scheduled Acetaminophen With Codeine (Tylenol-Cod #3 Tablet), 1 TAB PO TID, (Reported) Amitriptyline Hcl (Amitriptyline Hcl), 2 TAB PO HS, (Reported) Cilostazol (Cilostazol), 0.5 TAB PO BID, (Reported) Gabapentin (Gabapentin), 2 TAB PO TID, (Reported) Hydroxychloroquine Sulfate (Hydroxychloroquine Sulfate), 1 TAB PO BID, (Reported) Lisinopril (Lisinopril), 1 TAB PO DAILY, (Reported) Metformin Hcl (Metformin Hcl), 1 TAB PO BID, (Reported) Methotrexate Sodium (Methotrexate), 50 MG IJ Q7D, (Reported) Sertraline Hcl (Zoloft), 1 TAB PO HS, (Reported) Testosterone Cypionate (Testosterone Cypionate), 200 MG IM Q7D, (Reported) Scheduled PRN Hydroxyzine Hcl (Hydroxyzine Hcl), 2 TAB PO TID PRN for ANXIETY, (Reported) Objective Vitals and I/O Vital Sign - Last 24 Hours 06/08/20 06/08/20 06/08/20 06/08/20 08:36 09:10 11:13 16:30 Temp 98.1 98.5 98.0 Pulse 101 110 97 90 Resp 20 20 18 18 B/P (MAP) 158/89 (112) 148/81 (103) 162/83 (109) Pulse Ox 93 93 91 99 O2 Delivery Room Air Room Air Room Air FiO2 21 06/08/20 06/08/20 06/08/20 06/08/20 18:36 19:20 19:48 20:04 Temp 98.7 Pulse 102 104 Resp 18 18 B/P (MAP) 130/76 (94) Pulse Ox 85 95 O2 Delivery Room Air Room Air Room Air Nasal [place] O2 Flow Rate 2.00 FiO2 21 06/09/20 06/09/20 06/09/20 06/09/20 00:35 05:03 07:27 07:45 Temp 99.2 98.4 98.0 Pulse 105 104 95 Resp 18 18 B/P (MAP) 139/80 (99) 117/66 (83) 109/66 (80) Pulse Ox 92 92 92 O2 Delivery Nasal Canula Nasal Canula Nasal Canula Room Air O2 Flow Rate 2.00 2.00 2.00 Intake and Output 06/09/20 07:00 Intake Total 600 ml Output Total 3150 ml Balance -2550 ml General: Alert, Oriented X3, Cooperative, No acute distress HEENT: Atraumatic, PERRLA Lungs: Clear to auscultation, Normal air movement Heart: Regular rate, Normal S1, Normal S2, No murmurs Abdomen: Normal bowel sounds, Soft, No hepatospenomegaly Extremities: No clubbing, No cyanosis, No edema, Normal pulses, Other (right knee dressing intact, neuros intact, WBAT) Neuro: Normal gait, Normal speech All Results(Lab/Rad) Laboratory Tests Test 06/07/20 06:16 06/07/20 10:58 Bedside Glucose 141 150 Current Medications Medications (Trade) Dose Ordered Sig/Justus Route PRN Reason Start Time Stop Time Status Last Admin Dose Admin Sodium Chloride 250 ml @ ud STK-MED ONCE IV 06/04/20 11:11 06/04/20 11:12 DC Cefazolin Sodium (Ancef) 1 gm STK-MED ONCE .ROUTE 06/04/20 11:11 06/04/20 11:13 DC Sodium Chloride 100 ml @ ud STK-MED ONCE IV 06/04/20 12:47 06/04/20 12:49 DC Mupirocin (Bactroban Ointment) 1 gm OT TP 06/07/20 06:00 07/07/20 05:59 06/07/20 06:23 Sodium Chloride (Sodium Chloride Irr Bottle) 1,000 ml STK-MED ONCE IR 06/07/20 07:02 06/07/20 07:04 DC Sterile Water (Water) 1,000 ml STK-MED ONCE .ROUTE 06/07/20 07:02 06/07/20 07:04 DC Sodium Chloride 100 ml @ ud STK-MED ONCE IV 06/07/20 07:02 06/07/20 07:04 DC Sodium Chloride 250 ml @ ud STK-MED ONCE IV 06/07/20 07:02 06/07/20 07:04 DC Sodium Chloride (NS 3000ml Irr) 3,000 ml STK-MED ONCE IR 06/07/20 07:02 06/07/20 07:04 DC Fentanyl Citrate (Sublimaze) 50 mcg STK-MED ONCE .ROUTE 06/07/20 07:29 06/07/20 07:31 DC Propofol (Diprivan) 200 mg STK-MED ONCE IV 06/07/20 07:57 06/07/20 08:00 DC Tramadol HCl (Ultram) 50 mg Q6H PO 06/07/20 09:00 06/07/20 09:22 DC Tramadol HCl (Ultram) 100 mg Q6H PRN PO PAIN 4 - 6 06/07/20 09:00 06/07/20 09:22 DC Rivaroxaban (Xarelto) 10 mg DAILY PO 06/08/20 09:00 07/08/20 08:59 Docusate Sodium (Colace) 100 mg DAILY PO 06/07/20 09:00 07/07/20 08:59 Throat Lozenges (Cepacol Sore Throat Lozenge) 1 each PRN PRN MM SORE THROAT 06/07/20 09:00 07/07/20 08:59 Famotidine (Pepcid) 20 mg DAILY PO 06/07/20 09:00 07/07/20 08:59 Cefazolin Sodium/ Dextrose (Ancef 2 Gm/D5W 50ml) 2 gm Q8 IV 06/07/20 14:00 06/07/20 13:59 DC Acetaminophen/ Codeine Phosphate (Tylenol #3) 1 each TID PO 06/07/20 15:00 06/07/20 11:06 DC Hydroxychloroquine Sulfate (Plaquenil) 200 mg BID PO 06/07/20 21:00 07/07/20 20:59 Future Hold Metformin HCl (Glucophage) 500 mg BID PO 06/07/20 21:00 07/07/20 20:59 Methotrexate (Methotrexate) 50 mg Q7D IJ 06/07/20 09:30 06/07/20 11:06 DC Sertraline HCl (Zoloft) 50 mg HS PO 06/07/20 21:00 07/07/20 20:59 Acetaminophen/ Codeine Phosphate (Tylenol #4) 1 tablet Q4H PRN PO PAIN 7 - 10 06/07/20 09:30 06/07/20 11:06 DC Hydromorphone HCl (Dilaudid) 1 mg Q4H PRN IV PAIN 7 - 10 06/07/20 09:30 06/07/20 11:06 DC Hydromorphone HCl (Dilaudid) 0.2 mg Q5M PRN IV PAIN 1 - 3 06/07/20 11:30 06/07/20 17:15 DC 06/07/20 11:35 Fentanyl Citrate (Sublimaze) 12.5 mcg Q5MIN PRN IV PAIN 06/07/20 11:30 06/07/20 17:15 DC Promethazine HCl (Phenergan) 12.5 mg PRN PRN IV NAUSEA / VOMITING 06/07/20 11:30 06/07/20 13:18 DC Acetaminophen/ Codeine Phosphate (Tylenol #4) 1 tablet Q4H PO 06/07/20 11:30 07/07/20 09:29 Hydromorphone HCl (Dilaudid) 3 mg Q4H PRN IV PAIN 7 - 10 06/07/20 11:30 07/07/20 11:29 Acetaminophen/ Codeine Phosphate (Tylenol #4) 2 tablet Q4H PRN PO PAIN 7 - 10 06/07/20 11:30 07/07/20 11:29 06/07/20 15:18 Lidocaine HCl (Lidocaine 2% Vial) 500 mg STK-MED ONCE .ROUTE 06/07/20 11:10 06/07/20 11:12 DC Tranexamic Acid (Tranexamic Acid) 1,000 mg STK-MED ONCE .ROUTE 06/07/20 11:10 06/07/20 11:12 DC Ondansetron HCl (Zofran) 4 mg STK-MED ONCE .ROUTE 06/07/20 11:10 06/07/20 11:12 DC Rocuronium [place] (Rocuronium [place]) 50 mg STK-MED ONCE IV 06/07/20 11:11 06/07/20 11:12 DC Sodium Chloride 1,000 ml @ ud STK-MED ONCE .ROUTE 06/07/20 11:12 06/07/20 11:14 DC Sodium Chloride 1,000 ml @ 100 mls/hr Q10H IV 06/07/20 11:00 07/07/20 10:59 06/07/20 11:10 Cefazolin Sodium 1 gm/Sodium Chloride 100 ml @ 100 mls/hr Q8 IV 06/07/20 14:00 06/08/20 06:59 06/07/20 15:30 Course Sepsis Screening Results: Posi: NEGATIVE Sepsis Qualifier/Stage: NO DEFINITE RISK Vitals & review Data Vital Sign - Last 24 Hours 06/07/20 06/07/20 06/07/20 06/07/20 06:07 06:07 07:36 07:40 Temp 96.7 Pulse 94 79 64 Resp 18 18 18 B/P (MAP) 113/67 (82) 131/83 (99) 122/71 (88) Pulse Ox 97 100 99 O2 Delivery Room Air Room Air Nasal Canula Nasal Canula O2 Flow Rate 2 2 06/07/20 06/07/20 06/07/20 06/07/20 07:47 10:55 10:55 11:05 Temp 97.8 97.8 Pulse 79 84 82 Resp 18 16 18 B/P (MAP) 132/67 (88) 110/56 (74) 121/61 (81) Pulse Ox 97 100 100 O2 Delivery Nasal [place] Non-Rebreather Non-Rebreather O2 Flow Rate 2 15 15 10 06/07/20 06/07/20 06/07/20 06/07/20 11:15 11:25 11:35 11:45 Temp 97.6 97.6 98.0 98.6 Pulse 78 81 77 78 Resp 18 19 18 17 B/P (MAP) 113/63 (80) 142/84 (103) 137/85 (102) 144/85 (104) Pulse Ox 100 100 97 95 O2 Delivery Non-Rebreather Non-Rebreather Room Air Room Air O2 Flow Rate 10 10 06/07/20 06/07/20 06/07/20 06/07/20 11:55 12:05 12:38 13:17 Temp 98.0 97.7 Pulse 74 76 Resp 18 19 16 B/P (MAP) 137/80 (99) 134/80 (98) Pulse Ox 97 97 97 O2 Delivery Room Air Room Air Room Air Laboratory Tests Test 06/07/20 06:16 06/07/20 10:58 Bedside Glucose 141 150 Current Medications Medications (Trade) Dose Ordered Sig/Justus PRN Reason Start Time Stop Time Status Last Admin Acetaminophen/ Codeine Phosphate (Tylenol #4) 1 tablet Q4H 06/07/20 11:30 07/07/20 09:29 Acetaminophen/ Codeine Phosphate (Tylenol #4) 2 tablet Q4H PRN PAIN 7 - 10 06/07/20 11:30 07/07/20 11:29 06/07/20 15:18 Cefazolin Sodium 1 gm/Sodium Chloride 100 ml @ 100 mls/hr Q8 06/07/20 14:00 06/08/20 06:59 06/07/20 15:30 Docusate Sodium (Colace) 100 mg DAILY 06/07/20 09:00 07/07/20 08:59 Famotidine (Pepcid) 20 mg DAILY 06/07/20 09:00 07/07/20 08:59 Hydromorphone HCl (Dilaudid) 3 mg Q4H PRN PAIN 7 - 10 06/07/20 11:30 07/07/20 11:29 Hydroxychloroquine Sulfate (Plaquenil) 200 mg BID 06/07/20 21:00 07/07/20 20:59 Future Hold Metformin HCl (Glucophage) 500 mg BID 06/07/20 21:00 07/07/20 20:59 Mupirocin (Bactroban Ointment) 1 gm OT 06/07/20 06:00 07/07/20 05:59 06/07/20 06:23 Rivaroxaban (Xarelto) 10 mg DAILY 06/08/20 09:00 07/08/20 08:59 Sertraline HCl (Zoloft) 50 mg HS 06/07/20 21:00 07/07/20 20:59 Sodium Chloride 1,000 ml @ 100 mls/hr Q10H 06/07/20 11:00 07/07/20 10:59 06/07/20 11:10 Throat Lozenges (Cepacol Sore Throat Lozenge) 1 each PRN PRN SORE THROAT 06/07/20 09:00 07/07/20 08:59 LEVEL 1 SEPSIS INFECTION CRITE: Recent Invasive Procedure LEVEL 2-SIRS (LIST ALL THAT AP: HR>90/min, WBC>[id number] Cardiovascular Evidence: Not Assessed or None Hematologic Evidence: None/Not assessed Hepatic Evidence: None/Not assessed Metabolic Evidence: None/Not assessed Neurological Evidence: None/Not assessed Respiratory Evidence: None/Not assessed Renal Evidence: None/Not assessed O2 Sat by Pulse Oximetry: 92 Oxygen Flow Rate: 2.00 Assessment/Plan Assessment/Plan Assessment/Plan Plan Right knee OA- s/p right TKA post op #2 continue medications. Scheduled pain medication and PRN. PT/OT- eval and treat, WBAT RLE, walker labs scheduled; ordered CMP hospitalist consult JENNIFER SINGH NP Jun 09, 2020 08:31
--- NOTE | 2020-06-09 08:35 | NUR ---
RECEIVED ORDERS FOR STAT ABG. MELANIE FROM RT NOTIFIED.
--- NOTE | 2020-06-09 08:40 | NUR ---
SULEMA FROM RT AT THE BEDSIDE AT THIS TIME TO DRAW ABG.
[2020-06-09] MEDS: PEPCID PO SCH (08:49)
[2020-06-09] MEDS: COLACE PO SCH (08:50)
[2020-06-09] MEDS: GLUCOPHAGE PO SCH ×2 (08:50→21:17)
[2020-06-09] MEDS: XARELTO PO SCH (08:50)
[2020-06-09] MEDS: NEURONTIN PO SCH ×3 (08:50→21:17)
--- NOTE | 2020-06-09 08:50 | NUR ---
AND JORGE THOMAS NOTIFIED OF ABG RESULTS. NO NEW ORDERS RECEIVED. CALL LIGHT IN REACH, BED IS LOW AND LOCKED. WILL CONTINUE TO MONITOR PATIENT.
[2020-06-09 08:57] LABS: ABG PCO2 33.1 mmHg (35.0-45.0); ABG PH 7.428 (7.350-7.450); BE(B) -2.2 mmol/L (-2.0-2.0); HCO3act 21.4 mmol/L (22.0-26.0); pO2 57.9 mmHg (80.0-100.0)
[2020-06-09] MEDS ORDERED: DEXTROSE 50%-WATER SYRINGE IV PRN (09:00)
--- NOTE | 2020-06-09 09:23 | PRM.CONS ---
Consultation Reason for Consult: Reason for Consultation: Medical Management Objective Vitals and I/O Vital Sign - Last 24 Hours 06/08/20 06/08/20 06/08/20 06/08/20 11:13 16:30 18:36 19:20 Temp 98.5 98.0 Pulse 97 90 Resp 18 18 B/P (MAP) 148/81 (103) 162/83 (109) Pulse Ox 91 99 O2 Delivery Room Air Room Air Room Air 06/08/20 06/08/20 06/09/20 06/09/20 19:48 20:04 00:35 05:03 Temp 98.7 99.2 98.4 Pulse 102 104 105 104 Resp 18 18 18 18 B/P (MAP) 130/76 (94) 139/80 (99) 117/66 (83) Pulse Ox 85 95 92 92 O2 Delivery Room Air Nasal Canula Nasal Canula Nasal Canula O2 Flow Rate 2.00 2.00 2.00 FiO2 21 06/09/20 06/09/20 07:27 07:45 Temp 98.0 Pulse 95 B/P (MAP) 109/66 (80) Pulse Ox 92 O2 Delivery Nasal Canula Room Air O2 Flow Rate 2.00 Intake and Output 06/09/20 07:00 Intake Total 600 ml Output Total 3150 ml Balance -2550 ml General: Alert, Oriented X3, Cooperative, No acute distress, Other ([place]ner[place] person and place) HEENT: Atraumatic, PERRLA, Mucous membr. moist/pink Lungs: Clear to auscultation, Normal air movement Heart: Regular rate, Normal S1, Normal S2, No murmurs Abdomen: Normal bowel sounds, Soft, No tenderness, No hepatospenomegaly Extremities: No clubbing, No cyanosis, No edema, Normal pulses, Other Neuro: Normal speech, Strength at 5/5 X4 ext (Left shoulder paing), Cranial nerves 3-12 NL (O X person and place, knows but took [address] Henderson did his surgery), Reflexes 2+ Psych/Mental Status: Mood NL All Results(Lab/Rad) Laboratory Tests Test 06/07/20 06:16 06/07/20 10:58 Bedside Glucose 141 150 Current Medications Medications (Trade) Dose Ordered Sig/Justus Route PRN Reason Start Time Stop Time Status Last Admin Dose Admin Sodium Chloride 250 ml @ ud STK-MED ONCE IV 06/04/20 11:11 06/04/20 11:12 DC Cefazolin Sodium (Ancef) 1 gm STK-MED ONCE .ROUTE 06/04/20 11:11 06/04/20 11:13 DC Sodium Chloride 100 ml @ ud STK-MED ONCE IV 06/04/20 12:47 06/04/20 12:49 DC Mupirocin (Bactroban Ointment) 1 gm OT TP 06/07/20 06:00 07/07/20 05:59 06/07/20 06:23 Sodium Chloride (Sodium Chloride Irr Bottle) 1,000 ml STK-MED ONCE IR 06/07/20 07:02 06/07/20 07:04 DC Sterile Water (Water) 1,000 ml STK-MED ONCE .ROUTE 06/07/20 07:02 06/07/20 07:04 DC Sodium Chloride 100 ml @ ud STK-MED ONCE IV 06/07/20 07:02 06/07/20 07:04 DC Sodium Chloride 250 ml @ ud STK-MED ONCE IV 06/07/20 07:02 06/07/20 07:04 DC Sodium Chloride (NS 3000ml Irr) 3,000 ml STK-MED ONCE IR 06/07/20 07:02 06/07/20 07:04 DC Fentanyl Citrate (Sublimaze) 50 mcg STK-MED ONCE .ROUTE 06/07/20 07:29 06/07/20 07:31 DC Propofol (Diprivan) 200 mg STK-MED ONCE IV 06/07/20 07:57 06/07/20 08:00 DC Tramadol HCl (Ultram) 50 mg Q6H PO 06/07/20 09:00 06/07/20 09:22 DC Tramadol HCl (Ultram) 100 mg Q6H PRN PO PAIN 4 - 6 06/07/20 09:00 06/07/20 09:22 DC Rivaroxaban (Xarelto) 10 mg DAILY PO 06/08/20 09:00 07/08/20 08:59 Docusate Sodium (Colace) 100 mg DAILY PO 06/07/20 09:00 07/07/20 08:59 Throat Lozenges (Cepacol Sore Throat Lozenge) 1 each PRN PRN MM SORE THROAT 06/07/20 09:00 07/07/20 08:59 Famotidine (Pepcid) 20 mg DAILY PO 06/07/20 09:00 07/07/20 08:59 Cefazolin Sodium/ Dextrose (Ancef 2 Gm/D5W 50ml) 2 gm Q8 IV 06/07/20 14:00 06/07/20 13:59 DC Acetaminophen/ Codeine Phosphate (Tylenol #3) 1 each TID PO 06/07/20 15:00 06/07/20 11:06 DC Hydroxychloroquine Sulfate (Plaquenil) 200 mg BID PO 06/07/20 21:00 07/07/20 20:59 Future Hold Metformin HCl (Glucophage) 500 mg BID PO 06/07/20 21:00 07/07/20 20:59 Methotrexate (Methotrexate) 50 mg Q7D IJ 06/07/20 09:30 06/07/20 11:06 DC Sertraline HCl (Zoloft) 50 mg HS PO 06/07/20 21:00 07/07/20 20:59 Acetaminophen/ Codeine Phosphate (Tylenol #4) 1 tablet Q4H PRN PO PAIN 7 - 10 06/07/20 09:30 06/07/20 11:06 DC Hydromorphone HCl (Dilaudid) 1 mg Q4H PRN IV PAIN 7 - 10 06/07/20 09:30 06/07/20 11:06 DC Hydromorphone HCl (Dilaudid) 0.2 mg Q5M PRN IV PAIN 1 - 3 06/07/20 11:30 06/07/20 17:15 DC 06/07/20 11:35 Fentanyl Citrate (Sublimaze) 12.5 mcg Q5MIN PRN IV PAIN 06/07/20 11:30 06/07/20 17:15 DC Promethazine HCl (Phenergan) 12.5 mg PRN PRN IV NAUSEA / VOMITING 06/07/20 11:30 06/07/20 13:18 DC Acetaminophen/ Codeine Phosphate (Tylenol #4) 1 tablet Q4H PO 06/07/20 11:30 07/07/20 09:29 Hydromorphone HCl (Dilaudid) 3 mg Q4H PRN IV PAIN 7 - 10 06/07/20 11:30 07/07/20 11:29 Acetaminophen/ Codeine Phosphate (Tylenol #4) 2 tablet Q4H PRN PO PAIN 7 - 10 06/07/20 11:30 07/07/20 11:29 06/07/20 15:18 Lidocaine HCl (Lidocaine 2% Vial) 500 mg STK-MED ONCE .ROUTE 06/07/20 11:10 06/07/20 11:12 DC Tranexamic Acid (Tranexamic Acid) 1,000 mg STK-MED ONCE .ROUTE 06/07/20 11:10 06/07/20 11:12 DC Ondansetron HCl (Zofran) 4 mg STK-MED ONCE .ROUTE 06/07/20 11:10 06/07/20 11:12 DC Rocuronium [place] (Rocuronium [place]) 50 mg STK-MED ONCE IV 06/07/20 11:11 06/07/20 11:12 DC Sodium Chloride 1,000 ml @ ud STK-MED ONCE .ROUTE 06/07/20 11:12 06/07/20 11:14 DC Sodium Chloride 1,000 ml @ 100 mls/hr Q10H IV 06/07/20 11:00 07/07/20 10:59 06/07/20 11:10 Cefazolin Sodium 1 gm/Sodium Chloride 100 ml @ 100 mls/hr Q8 IV 06/07/20 14:00 06/08/20 06:59 06/07/20 15:30 Medication Reconciliation Scheduled Acetaminophen With Codeine (Tylenol-Cod #3 Tablet), 1 TAB PO TID, (Reported) Amitriptyline Hcl (Amitriptyline Hcl), 2 TAB PO HS, (Reported) Cilostazol (Cilostazol), 0.5 TAB PO BID, (Reported) Gabapentin (Gabapentin), 2 TAB PO TID, (Reported) Hydroxychloroquine Sulfate (Hydroxychloroquine Sulfate), 1 TAB PO BID, (Reported) Lisinopril (Lisinopril), 1 TAB PO DAILY, (Reported) Metformin Hcl (Metformin Hcl), 1 TAB PO BID, (Reported) Methotrexate Sodium (Methotrexate), 50 MG IJ Q7D, (Reported) Sertraline Hcl (Zoloft), 1 TAB PO HS, (Reported) Testosterone Cypionate (Testosterone Cypionate), 200 MG IM Q7D, (Reported) Scheduled PRN Hydroxyzine Hcl (Hydroxyzine Hcl), 2 TAB PO TID PRN for ANXIETY, (Reported) Subjective Subjective Date: Jun 09, 2020 Time: 09:25 Subjective Came to see the patient because nurses say they had a hard time keeping him aroused. Was able to wake the patient easily but he was confused and this is oriented. Only recall his name and that he was in the hospital. Not complaining of weakness in his arms or legs and then complaining of a headache or shortness of breath. Only pain is at the surgical site. The patient medical history of diabetes, chronic back pain and neuropathic pain taking opiates and gabapentin and the rheumatoid arthritis and hypertension. Patient and report him compliant with medications before coming into the hospital. The say he has difficult to arouse at home. They have a hard time for him to get sleep shaking lesser doses of his medications. Social history: and he uses no illicit drugs Review of systems: 12l systems reviewed with the patient and his and a major complaints or his chronic pain in the back, left shoulder and the knee which he does have surgery. And a history of Patient History: Cerebrovascular disorder G8 FATHER, , Age:55 Hypertension G8 SISTER No known health problems G8 BROTHER G8 BROTHER G8 BROTHER G8 BROTHER G8 BROTHER G8 SISTER G8 SISTER 19 CHILD 19 CHILD 19 CHILD 19 CHILD 19 CHILD No Family History of: Alzheimer's disease Asthma Chronic obstructive pulmonary disease Congestive heart failure Diabetes insipidus Diabetes mellitus Parkinson's disease VTE VTE Risk Total Score: 3 VTE Risk Score VTE Risk: Score 0-1 = Low Risk (Aggressive mobilization; early ambulation; no VTE prophylaxis required) Score 2: Moderate Risk (Intermittent/Pneumatic Compression Device OR Lovenox/Heparin/Coumadin) Score 3-4: High Risk (Intermittent/Pneumatic Compression Device AND Lovenox/Heparin/Coumadin) Score > or =5: Highest Risk (Intermittent/Pneumatic Compression Device AND Lovenox/Heparin/Coumadin) Plan Plan My Orders - LA HERRERA MD Procedure Category Date Status Time Arterial Blood Gas LAB 06/09/20 Complete 08:40 Accucheck NURORDERS 06/09/20 Transmitted 11:30 Accucheck NURORDERS 06/09/20 Transmitted 17:30 Accucheck NURORDERS 06/09/20 Transmitted 21:00 Accucheck NURORDERS 06/10/20 Transmitted 07:30 Accucheck NURORDERS 06/10/20 Transmitted 11:30 Accucheck NURORDERS 06/10/20 Transmitted 17:30 Accucheck NURORDERS 06/10/20 Transmitted 21:00 Accucheck NURORDERS 06/11/20 Transmitted 07:30 Accucheck NURORDERS 06/11/20 Transmitted 11:30 Accucheck NURORDERS 06/11/20 Transmitted 17:30 Accucheck NURORDERS 06/11/20 Transmitted 21:00 Accucheck NURORDERS 06/12/20 Transmitted 07:30 Accucheck NURORDERS 06/12/20 Transmitted 11:30 Accucheck NURORDERS 06/12/20 Transmitted 17:30 Accucheck NURORDERS 06/12/20 Transmitted 21:00 Accucheck NURORDERS 06/13/20 Transmitted 07:30 Accucheck NURORDERS 06/13/20 Transmitted 11:30 Accucheck NURORDERS 06/13/20 Transmitted 17:30 Accucheck NURORDERS 06/13/20 Transmitted 21:00 Accucheck NURORDERS 06/14/20 Transmitted 07:30 Accucheck NURORDERS 06/14/20 Transmitted 11:30 Accucheck NURORDERS 06/14/20 Transmitted 17:30 Accucheck NURORDERS 06/14/20 Transmitted 21:00 Accucheck NURORDERS 06/15/20 Transmitted 07:30 Accucheck NURORDERS 06/15/20 Transmitted 11:30 Accucheck NURORDERS 06/15/20 Transmitted 17:30 Accucheck NURORDERS 06/15/20 Transmitted 21:00 Accucheck NURORDERS 06/16/20 Transmitted 07:30 Accucheck NURORDERS 06/16/20 Transmitted 11:30 Accucheck NURORDERS 06/16/20 Transmitted 17:30 Accucheck NURORDERS 06/16/20 Transmitted 21:00 Accucheck NURORDERS 06/17/20 Transmitted 07:30 Accucheck NURORDERS 06/17/20 Transmitted 11:30 Accucheck NURORDERS 06/17/20 Transmitted 17:30 Accucheck NURORDERS 06/17/20 Transmitted 21:00 Dextrose 50 % In PHA 06/09/20 In Process Water (Dextrose 09:00 Problems, incl. Pt HX: (1) Type 2 diabetes mellitus ICD Code: E11.9 - Type 2 diabetes mellitus without complications SNOMED: 74644049 Assessment & Plan: Continue home meds and add Sliding scale with meals, BS monitoring 4 timers a day, 1800 elyse ADA diet (2) Hypoxia ICD Code: R09.02 - Hypoxemia SNOMED: 851170916 Assessment & Plan: ABG on RA has hypoxia with no CO retention and normal PH ; no respiratory acidosis; He is mouth breather so change to venti-mask. Suspect underlying FLIP. His chronic use opiates and sedatives at home contributing. I will recheck later (3) Hypertension, essential ICD Code: I10 - Essential (primary) hypertension SNOMED: 05680434 Assessment & Plan: BP up few hours post- operatively; watch him today on hi home medications. (4) Rheumatoid arthritis ICD Code: M06.9 - Rheumatoid arthritis, unspecified SNOMED: 88246304 Assessment & Plan: On methotrexate and codeine chronically (5) Morbid obesity ICD Code: E66.01 - Morbid (severe) obesity due to excess calories SNOMED: 900585624 (6) Chronic neuropathic pain ICD Code: M79.2 - Neuralgia and neuritis, unspecified; G89.29 - Other chronic pain SNOMED: 320612469 Assessment & Plan: On very high dose gabapentin and amitriptyline (7) Osteoarthritis of right knee ICD Code: M17.11 - Unilateral primary osteoarthritis, right knee SNOMED: [id number] Assessment & Plan: Care post operative per Dr[facility] LA HERRERA MD Jun 09, 2020 09:23
--- NOTE | 2020-06-09 10:00 | NUR ---
PT REASSESSMENT UPON REASSESSMENT PT IS AWAKE, ALERT AND ORIENTED X4. PT SITTING UP IN CHAIR WATCHING TV. WILL CONTINUE TO MONITOR.
[2020-06-09 11:48] LABS: CALCIUM 8.9 mg/dL (8.4-10.5); CARBON DIOXIDE 28.9 mmol/L (20.0-32)
[2020-06-09 11:53] VITALS: BP 154/70
[2020-06-09 16:19] VITALS: BP 151/84
[2020-06-09 20:00] VITALS: BP 145/82
[2020-06-09] MEDS ORDERED: ELAVIL ONE (21:10)
[2020-06-09] MEDS: ELAVIL PO SCH (21:17)
[2020-06-09] MEDS: ZOLOFT PO SCH (21:17)
[2020-06-10 00:01] VITALS: BP 128/83
[2020-06-10] MEDS ORDERED: TYLENOL ONE (00:06)
--- NOTE | 2020-06-10 00:10 | NUR ---
DR. HERRERA NOTIFIED ABOUT TEMP OF 100.6 AND HEART RATE FROM 110 -120 PT BEING VERY CONFUSED. ORDER RECEIVED FOR 650MG TYLENOL Q 6 HOURS PRN
[2020-06-10] MEDS ORDERED: TYLENOL PO PRN (00:30)
--- NOTE | 2020-06-10 01:00 | NUR ---
DR. HERRERA NOTIFIED PT VERY CONFUSED , TRYING TO GET OUT OF BED , TAKING TELEMETRY OFF. ORDER RECEIVED FOR 1 TIME DOSE HALDOL 2MG IV.
[2020-06-10] MEDS ORDERED: HALDOL IV ONE (01:30)
[2020-06-10] MEDS ORDERED: HALDOL ONE (01:36)
[2020-06-10 04:59] LABS: BASOPHIL # 0.1 10^3/uL (0.0-0.1); BASOPHIL % 0.4 % (0.0-0.2); EOSINOPHIL # 0.2 10^3/uL (0.0-0.2); EOSINOPHIL % 1.3 % (0.0-5.0); LYMPHOCYTES # 2.34 10^3/uL1 (1.0-4.8); LYMPHOCYTES % 16.5 % (24.0-44.0); MEAN CORP HGB 31.6 pg (26-34); MONOCYTES # 1.5 10^3/uL (0.3-0.8); MONOCYTES % 10.4 % (5.0-12.0); NEUTROPHILS % 70.6 % (41.0-85.0); PLATELET COUNT 231 10^3/uL (150-400)
[2020-06-10 05:00] VITALS: BP 106/70
[2020-06-10 05:32] LABS: CALCIUM 9.1 mg/dL (8.4-10.5); CARBON DIOXIDE 23.5 mmol/L (20.0-32)
[2020-06-10] MEDS: NS 1000ML 1,000 ML IV SCH ×2 (09:00→19:00)
[2020-06-10 09:25] VITALS: BP 122/69
[2020-06-10] MEDS: GLUCOPHAGE PO SCH ×2 (09:26→21:03)
[2020-06-10] MEDS: COLACE PO SCH (09:27)
[2020-06-10] MEDS: PEPCID PO SCH (09:27)
[2020-06-10] MEDS: XARELTO PO SCH (09:27)
[2020-06-10] MEDS: NEURONTIN PO SCH ×3 (09:27→21:03)
--- NOTE | 2020-06-10 09:38 | PRM.PN ---
Subjective Subjective Date: Jun 10, 2020 Time: 09:36 Subjective Had some hallucinations last night Pain better today Awake and alert this am VSS HGB 11.7 postop anemia from surgical blood loss expected Cont with PT Patient History: Cerebrovascular disorder G8 FATHER, , Age:55 Hypertension G8 SISTER No known health problems G8 BROTHER G8 BROTHER G8 BROTHER G8 BROTHER G8 BROTHER G8 SISTER G8 SISTER 19 CHILD 19 CHILD 19 CHILD 19 CHILD 19 CHILD No Family History of: Alzheimer's disease Asthma Chronic obstructive pulmonary disease Congestive heart failure Diabetes insipidus Diabetes mellitus Parkinson's disease VTE VTE Risk Total Score: 3 VTE Risk Score VTE Risk: Score 0-1 = Low Risk (Aggressive mobilization; early ambulation; no VTE prophylaxis required) Score 2: Moderate Risk (Intermittent/Pneumatic Compression Device OR Lovenox/Heparin/Coumadin) Score 3-4: High Risk (Intermittent/Pneumatic Compression Device AND Lovenox/Heparin/Coumadin) Score > or =5: Highest Risk (Intermittent/Pneumatic Compression Device AND Lovenox/Heparin/Coumadin) Review of Systems Constitutional: No: Fever, Chills, Sweats, Weakness, Malaise, Other Eyes: No: Pain, Vision change, Conjunctivae inflammation, Eyelid inflammation, Other, Redness ENT: No: Ear pain, Ear discharge, Nose pain, Nose discharge, Nose congestion, Mouth pain, Mouth swelling, Throat pain, Throat swelling, Other Respiratory: No: Cough, Dry, Shortness of breath, SOB with excertion, Wheezing, Hemoptysis, Pleuritic Pain, Sputum, Wheezing, Other Cardiovascular: No: Chest Pain, Palpitations, Orthopnea, Paroxysmal Noc. Dyspnea, Edema, Lt Headedness, Other Gastrointestinal: No: Nausea, Vomiting, Abdominal Pain, Diarrhea, Constipation, Melena, Hematochezia, Other Genitourinary: No Dysuria, No Frequency, No Incontinence, No Hematuria, No Retention, No Other Musculoskeletal: leg pain (right knee pain) Skin: No: Rash, Lesions, Jaundice, Bruising, Other Neurological: No: Weakness, Numbness, Incoordination, Change in speech, Confusion, Seizures, Other Allergies: Coded Allergies: No Known Allergies (Unverified , 06/03/20) Scheduled Acetaminophen With Codeine (Tylenol-Cod #3 Tablet), 1 TAB PO TID, (Reported) Amitriptyline Hcl (Amitriptyline Hcl), 2 TAB PO HS, (Reported) Cilostazol (Cilostazol), 0.5 TAB PO BID, (Reported) Gabapentin (Gabapentin), 2 TAB PO TID, (Reported) Hydroxychloroquine Sulfate (Hydroxychloroquine Sulfate), 1 TAB PO BID, (Reported) Lisinopril (Lisinopril), 1 TAB PO DAILY, (Reported) Metformin Hcl (Metformin Hcl), 1 TAB PO BID, (Reported) Methotrexate Sodium (Methotrexate), 50 MG IJ Q7D, (Reported) Sertraline Hcl (Zoloft), 1 TAB PO HS, (Reported) Testosterone Cypionate (Testosterone Cypionate), 200 MG IM Q7D, (Reported) Scheduled PRN Hydroxyzine Hcl (Hydroxyzine Hcl), 2 TAB PO TID PRN for ANXIETY, (Reported) Objective Vitals and I/O Vital Sign - Last 24 Hours 06/09/20 06/09/20 06/09/20 06/09/20 10:13 11:53 14:11 14:55 Temp 98.4 Pulse 99 99 Resp 18 18 B/P (MAP) 154/70 (98) Pulse Ox 94 96 O2 Delivery Nasal Cannula Nasal Canula Room Air Room Air O2 Flow Rate 2.00 FiO2 06/09/20 06/09/20 06/09/20 06/09/20 16:19 19:25 19:54 20:00 Temp 98.9 99.7 Pulse 87 102 102 Resp 16 16 16 B/P (MAP) 151/84 (106) 145/82 (103) Pulse Ox 97 94 96 O2 Delivery Nasal Canula Nasal Cannula Nasal Canula O2 Flow Rate 2.00 2.00 2.00 2.00 FiO2 06/10/20 06/10/20 06/10/20 06/10/20 00:01 01:08 05:00 07:04 Temp 100.6 99.7 98.2 Pulse 110 94 91 Resp 16 16 14 B/P (MAP) 128/83 (98) 106/70 (82) Pulse Ox 93 96 98 O2 Delivery Nasal Canula Nasal Canula Nasal Cannula O2 Flow Rate 2.00 2.00 2.00 FiO2 28 06/10/20 09:25 Temp 97.8 Pulse 93 Resp 18 B/P (MAP) 122/69 (86) Pulse Ox 96 O2 Delivery Room Air Intake and Output 06/10/20 07:00 Intake Total 1200 ml Output Total 2150 ml Balance -950 ml General: Alert, Oriented X3, Cooperative, No acute distress, Other ([place]re[place]ner[place] person and place) HEENT: Atraumatic, PERRLA, Mucous membr. moist/pink Lungs: Clear to auscultation, Normal air movement Heart: Regular rate, Normal S1, Normal S2, No murmurs Abdomen: Normal bowel sounds, Soft, No tenderness, No hepatospenomegaly Extremities: No clubbing, No cyanosis, No edema, Normal pulses, Other Neuro: Normal speech, Strength at 5/5 X4 ext (Left shoulder paing), Cranial nerves 3-12 NL (O X person and place, knows but took [address] Henderson did his surgery), Reflexes 2+ Psych/Mental Status: Mood NL All Results(Lab/Rad) Laboratory Tests Test 06/07/20 06:16 06/07/20 10:58 Bedside Glucose 141 150 Current Medications Medications (Trade) Dose Ordered Sig/Justus Route PRN Reason Start Time Stop Time Status Last Admin Dose Admin Sodium Chloride 250 ml @ ud STK-MED ONCE IV 06/04/20 11:11 06/04/20 11:12 DC Cefazolin Sodium (Ancef) 1 gm STK-MED ONCE .ROUTE 06/04/20 11:11 06/04/20 11:13 DC Sodium Chloride 100 ml @ ud STK-MED ONCE IV 06/04/20 12:47 06/04/20 12:49 DC Mupirocin (Bactroban Ointment) 1 gm OT TP 06/07/20 06:00 07/07/20 05:59 06/07/20 06:23 Sodium Chloride (Sodium Chloride Irr Bottle) 1,000 ml STK-MED ONCE IR 06/07/20 07:02 06/07/20 07:04 DC Sterile Water (Water) 1,000 ml STK-MED ONCE .ROUTE 06/07/20 07:02 06/07/20 07:04 DC Sodium Chloride 100 ml @ ud STK-MED ONCE IV 06/07/20 07:02 06/07/20 07:04 DC Sodium Chloride 250 ml @ ud STK-MED ONCE IV 06/07/20 07:02 06/07/20 07:04 DC Sodium Chloride (NS 3000ml Irr) 3,000 ml STK-MED ONCE IR 06/07/20 07:02 06/07/20 07:04 DC Fentanyl Citrate (Sublimaze) 50 mcg STK-MED ONCE .ROUTE 06/07/20 07:29 06/07/20 07:31 DC Propofol (Diprivan) 200 mg STK-MED ONCE IV 06/07/20 07:57 06/07/20 08:00 DC Tramadol HCl (Ultram) 50 mg Q6H PO 06/07/20 09:00 06/07/20 09:22 DC Tramadol HCl (Ultram) 100 mg Q6H PRN PO PAIN 4 - 6 06/07/20 09:00 06/07/20 09:22 DC Rivaroxaban (Xarelto) 10 mg DAILY PO 06/08/20 09:00 07/08/20 08:59 Docusate Sodium (Colace) 100 mg DAILY PO 06/07/20 09:00 07/07/20 08:59 Throat Lozenges (Cepacol Sore Throat Lozenge) 1 each PRN PRN MM SORE THROAT 06/07/20 09:00 07/07/20 08:59 Famotidine (Pepcid) 20 mg DAILY PO 06/07/20 09:00 07/07/20 08:59 Cefazolin Sodium/ Dextrose (Ancef 2 Gm/D5W 50ml) 2 gm Q8 IV 06/07/20 14:00 06/07/20 13:59 DC Acetaminophen/ Codeine Phosphate (Tylenol #3) 1 each TID PO 06/07/20 15:00 06/07/20 11:06 DC Hydroxychloroquine Sulfate (Plaquenil) 200 mg BID PO 06/07/20 21:00 07/07/20 20:59 Future Hold Metformin HCl (Glucophage) 500 mg BID PO 06/07/20 21:00 07/07/20 20:59 Methotrexate (Methotrexate) 50 mg Q7D IJ 06/07/20 09:30 06/07/20 11:06 DC Sertraline HCl (Zoloft) 50 mg HS PO 06/07/20 21:00 07/07/20 20:59 Acetaminophen/ Codeine Phosphate (Tylenol #4) 1 tablet Q4H PRN PO PAIN 7 - 10 06/07/20 09:30 06/07/20 11:06 DC Hydromorphone HCl (Dilaudid) 1 mg Q4H PRN IV PAIN 7 - 10 06/07/20 09:30 06/07/20 11:06 DC Hydromorphone HCl (Dilaudid) 0.2 mg Q5M PRN IV PAIN 1 - 3 06/07/20 11:30 06/07/20 17:15 DC 06/07/20 11:35 Fentanyl Citrate (Sublimaze) 12.5 mcg Q5MIN PRN IV PAIN 06/07/20 11:30 06/07/20 17:15 DC Promethazine HCl (Phenergan) 12.5 mg PRN PRN IV NAUSEA / VOMITING 06/07/20 11:30 06/07/20 13:18 DC Acetaminophen/ Codeine Phosphate (Tylenol #4) 1 tablet Q4H PO 06/07/20 11:30 07/07/20 09:29 Hydromorphone HCl (Dilaudid) 3 mg Q4H PRN IV PAIN 7 - 10 06/07/20 11:30 07/07/20 11:29 Acetaminophen/ Codeine Phosphate (Tylenol #4) 2 tablet Q4H PRN PO PAIN 7 - 10 06/07/20 11:30 07/07/20 11:29 06/07/20 15:18 Lidocaine HCl (Lidocaine 2% Vial) 500 mg STK-MED ONCE .ROUTE 06/07/20 11:10 06/07/20 11:12 DC Tranexamic Acid (Tranexamic Acid) 1,000 mg STK-MED ONCE .ROUTE 06/07/20 11:10 06/07/20 11:12 DC Ondansetron HCl (Zofran) 4 mg STK-MED ONCE .ROUTE 06/07/20 11:10 06/07/20 11:12 DC Rocuronium [place] (Rocuronium [place]) 50 mg STK-MED ONCE IV 06/07/20 11:11 06/07/20 11:12 DC Sodium Chloride 1,000 ml @ ud STK-MED ONCE .ROUTE 06/07/20 11:12 06/07/20 11:14 DC Sodium Chloride 1,000 ml @ 100 mls/hr Q10H IV 06/07/20 11:00 07/07/20 10:59 06/07/20 11:10 Cefazolin Sodium 1 gm/Sodium Chloride 100 ml @ 100 mls/hr Q8 IV 06/07/20 14:00 06/08/20 06:59 06/07/20 15:30 Course Sepsis Screening Results: Posi: NEGATIVE Sepsis Qualifier/Stage: NO DEFINITE RISK Vitals & review Data Vital Sign - Last 24 Hours 06/07/20 06/07/20 06/07/20 06/07/20 06:07 06:07 07:36 07:40 Temp 96.7 Pulse 94 79 64 Resp 18 18 18 B/P (MAP) 113/67 (82) 131/83 (99) 122/71 (88) Pulse Ox 97 100 99 O2 Delivery Room Air Room Air Nasal Canula Nasal Canula O2 Flow Rate 2 2 06/07/20 06/07/20 06/07/20 06/07/20 07:47 10:55 10:55 11:05 Temp 97.8 97.8 Pulse 79 84 82 Resp 18 16 18 B/P (MAP) 132/67 (88) 110/56 (74) 121/61 (81) Pulse Ox 97 100 100 O2 Delivery Nasal Canula Non-Rebreather Non-Rebreather O2 Flow Rate 2 15 15 10 06/07/20 06/07/20 06/07/20 06/07/20 11:15 11:25 11:35 11:45 Temp 97.6 97.6 98.0 98.6 Pulse 78 81 77 78 Resp 18 19 18 17 B/P (MAP) 113/63 (80) 142/84 (103) 137/85 (102) 144/85 (104) Pulse Ox 100 100 97 95 O2 Delivery Non-Rebreather Non-Rebreather Room Air Room Air O2 Flow Rate 10 10 06/07/20 06/07/20 06/07/20 06/07/20 11:55 12:05 12:38 13:17 Temp 98.0 97.7 Pulse 74 76 Resp 18 19 16 B/P (MAP) 137/80 (99) 134/80 (98) Pulse Ox 97 97 97 O2 Delivery Room Air Room Air Room Air Laboratory Tests Test 06/07/20 06:16 06/07/20 10:58 Bedside Glucose 141 150 Current Medications Medications (Trade) Dose Ordered Sig/Justus PRN Reason Start Time Stop Time Status Last Admin Acetaminophen/ Codeine Phosphate (Tylenol #4) 1 tablet Q4H 06/07/20 11:30 07/07/20 09:29 Acetaminophen/ Codeine Phosphate (Tylenol #4) 2 tablet Q4H PRN PAIN 7 - 10 06/07/20 11:30 07/07/20 11:29 06/07/20 15:18 Cefazolin Sodium 1 gm/Sodium Chloride 100 ml @ 100 mls/hr Q8 06/07/20 14:00 06/08/20 06:59 06/07/20 15:30 Docusate Sodium (Colace) 100 mg DAILY 06/07/20 09:00 07/07/20 08:59 Famotidine (Pepcid) 20 mg DAILY 06/07/20 09:00 07/07/20 08:59 Hydromorphone HCl (Dilaudid) 3 mg Q4H PRN PAIN 7 - 10 06/07/20 11:30 07/07/20 11:29 Hydroxychloroquine Sulfate (Plaquenil) 200 mg BID 06/07/20 21:00 07/07/20 20:59 Future Hold Metformin HCl (Glucophage) 500 mg BID 06/07/20 21:00 07/07/20 20:59 Mupirocin (Bactroban Ointment) 1 gm OT 06/07/20 06:00 07/07/20 05:59 06/07/20 06:23 Rivaroxaban (Xarelto) 10 mg DAILY 06/08/20 09:00 07/08/20 08:59 Sertraline HCl (Zoloft) 50 mg HS 06/07/20 21:00 07/07/20 20:59 Sodium Chloride 1,000 ml @ 100 mls/hr Q10H 06/07/20 11:00 07/07/20 10:59 06/07/20 11:10 Throat Lozenges (Cepacol Sore Throat Lozenge) 1 each PRN PRN SORE THROAT 06/07/20 09:00 07/07/20 08:59 LEVEL 1 SEPSIS INFECTION CRITE: Recent Invasive Procedure LEVEL 2-SIRS (LIST ALL THAT AP: HR>90/min, WBC>[id number] Cardiovascular Evidence: Not Assessed or None Hematologic Evidence: None/Not assessed Hepatic Evidence: None/Not assessed Metabolic Evidence: None/Not assessed Neurological Evidence: None/Not assessed Respiratory Evidence: None/Not assessed Renal Evidence: None/Not assessed O2 Sat by Pulse Oximetry: 96 Oxygen Flow Rate: 2.00 Assessment/Plan Assessment/Plan Assessment/Plan Right knee OA- s/p right TKA post op #2 continue medications. Scheduled pain medication and PRN. PT/OT- eval and treat, WBAT RLE, walker labs scheduled; ordered CMP hospitalist consult Plan Right knee OA- s/p right TKA post op #2 continue medications. Scheduled pain medication and PRN. PT/OT- eval and treat, WBAT RLE, walker labs scheduled; ordered CMP hospitalist consult DAPHNEY HENDERSON MD Jun 10, 2020 09:38
[2020-06-10 12:24] VITALS: BP 107/70
--- NOTE | 2020-06-10 12:30 | NUR ---
REPORT RECEIVED REPORT, ASSUMED CARE FOR PATIENT AT THIS TIME.
[2020-06-10] MEDS: TYLENOL #4 PO PRN ×2 (13:45→17:46)
--- NOTE | 2020-06-10 15:29 | PRM.PN ---
Subjective Subjective Date: Jun 10, 2020 Time: 09:00 Subjective Patient with episode of confusion and disorientation last evening. He had completely cleared up yesterday afternoon. A low-grade fever noted. The patient given dose of Tylenol for the fever and haloperidol for the confusion as he was also having hallucinations and talking to people in the area not there. This morning none of the behavior seen. It have not been observed during the day so for today. Has been cooperating with his postsurgical rehab. Patient History: Cerebrovascular disorder G8 FATHER, , Age:55 Hypertension G8 SISTER No known health problems G8 BROTHER G8 BROTHER G8 BROTHER G8 BROTHER G8 BROTHER G8 SISTER G8 SISTER 19 CHILD 19 CHILD 19 CHILD 19 CHILD 19 CHILD No Family History of: Alzheimer's disease Asthma Chronic obstructive pulmonary disease Congestive heart failure Diabetes insipidus Diabetes mellitus Parkinson's disease VTE VTE Risk Total Score: 3 VTE Risk Score VTE Risk: Score 0-1 = Low Risk (Aggressive mobilization; early ambulation; no VTE prophylaxis required) Score 2: Moderate Risk (Intermittent/Pneumatic Compression Device OR Lovenox/Heparin/Coumadin) Score 3-4: High Risk (Intermittent/Pneumatic Compression Device AND Lovenox/Heparin/Coumadin) Score > or =5: Highest Risk (Intermittent/Pneumatic Compression Device AND Lovenox/Heparin/Coumadin) Review of Systems Constitutional: No: Fever, Chills, Sweats, Weakness, Malaise, Other Eyes: No: Pain, Vision change, Conjunctivae inflammation, Eyelid inflammation, Other, Redness ENT: No: Ear pain, Ear discharge, Nose pain, Nose discharge, Nose congestion, Mouth pain, Mouth swelling, Throat pain, Throat swelling, Other Respiratory: No: Cough, Dry, Shortness of breath, SOB with excertion, Wheezing, Hemoptysis, Pleuritic Pain, Sputum, Wheezing, Other Cardiovascular: No: Chest Pain, Palpitations, Orthopnea, Paroxysmal Noc. Dyspnea, Edema, Lt Headedness, Other Gastrointestinal: No: Nausea, Vomiting, Abdominal Pain, Diarrhea, Constipation, Melena, Hematochezia, Other Genitourinary: No Dysuria, No Frequency, No Incontinence, No Hematuria, No Retention, No Other Musculoskeletal: leg pain (right knee pain) Skin: No: Rash, Lesions, Jaundice, Bruising, Other Neurological: No: Weakness, Numbness, Incoordination, Change in speech, Confusion, Seizures, Other Other 12 systems reviewed and negative other than the knee pain today Allergies: Coded Allergies: No Known Allergies (Unverified , 06/03/20) Scheduled Acetaminophen With Codeine (Tylenol-Cod #3 Tablet), 1 TAB PO TID, (Reported) Amitriptyline Hcl (Amitriptyline Hcl), 2 TAB PO HS, (Reported) Cilostazol (Cilostazol), 0.5 TAB PO BID, (Reported) Gabapentin (Gabapentin), 2 TAB PO TID, (Reported) Hydroxychloroquine Sulfate (Hydroxychloroquine Sulfate), 1 TAB PO BID, (Reported) Lisinopril (Lisinopril), 1 TAB PO DAILY, (Reported) Metformin Hcl (Metformin Hcl), 1 TAB PO BID, (Reported) Methotrexate Sodium (Methotrexate), 50 MG IJ Q7D, (Reported) Sertraline Hcl (Zoloft), 1 TAB PO HS, (Reported) Testosterone Cypionate (Testosterone Cypionate), 200 MG IM Q7D, (Reported) Scheduled PRN Hydroxyzine Hcl (Hydroxyzine Hcl), 2 TAB PO TID PRN for ANXIETY, (Reported) Objective Vitals and I/O Vital Sign - Last 24 Hours 06/09/20 06/09/20 06/09/20 06/09/20 16:19 19:25 19:54 20:00 Temp 98.9 99.7 Pulse 87 102 102 Resp 16 16 16 B/P (MAP) 151/84 (106) 145/82 (103) Pulse Ox 97 94 96 O2 Delivery Nasal Canula Nasal Cannula Nasal Canula O2 Flow Rate 2.00 2.00 2.00 2.00 FiO2 28 06/10/20 06/10/20 06/10/20 06/10/20 00:01 01:08 05:00 07:04 Temp 100.6 99.7 98.2 Pulse 110 94 91 Resp 16 16 14 B/P (MAP) 128/83 (98) 106/70 (82) Pulse Ox 93 96 98 O2 Delivery Nasal Canula Nasal Canula Nasal Cannula O2 Flow Rate 2.00 2.00 2.00 FiO2 28 06/10/20 06/10/20 06/10/20 09:25 11:24 12:24 Temp 97.8 97.8 Pulse 93 89 Resp 18 18 B/P (MAP) 122/69 (86) 107/70 (82) Pulse Ox 96 94 O2 Delivery Room Air Room Air Nasal [place] O2 Flow Rate 2.00 l Intake and Output 06/10/20 07:00 Intake Total 1200 ml Output Total 2150 ml Balance -950 ml General: Alert, Oriented X3, Cooperative, No acute distress, Other ([place] person and place) HEENT: Atraumatic, PERRLA, Mucous membr. moist/pink Neck: Supple, No JVD, +2 carotid pulse wo bruit Lungs: Clear to auscultation, Normal air movement Heart: Regular rate, Normal S1, Normal S2, No murmurs Abdomen: Normal bowel sounds, Soft, No tenderness, No hepatospenomegaly Extremities: No clubbing, No cyanosis, No edema, Normal pulses, Other Skin: No rashes Neuro: Normal speech, Strength at 5/5 X4 ext (Left shoulder paing), Cranial nerves 3-12 NL (O X person and place, knows but took [address] Henderson did his surgery), Reflexes 2+ Psych/Mental Status: Mental status NL, Mood NL All Results(Lab/Rad) Laboratory Tests Test 06/07/20 06:16 06/07/20 10:58 Bedside Glucose 141 150 Current Medications Medications (Trade) Dose Ordered Sig/Justus Route PRN Reason Start Time Stop Time Status Last Admin Dose Admin Sodium Chloride 250 ml @ ud STK-MED ONCE IV 06/04/20 11:11 06/04/20 11:12 DC Cefazolin Sodium (Ancef) 1 gm STK-MED ONCE .ROUTE 06/04/20 11:11 06/04/20 11:13 DC Sodium Chloride 100 ml @ ud STK-MED ONCE IV 06/04/20 12:47 06/04/20 12:49 DC Mupirocin (Bactroban Ointment) 1 gm OT TP 06/07/20 06:00 07/07/20 05:59 06/07/20 06:23 Sodium Chloride (Sodium Chloride Irr Bottle) 1,000 ml STK-MED ONCE IR 06/07/20 07:02 06/07/20 07:04 DC Sterile Water (Water) 1,000 ml STK-MED ONCE .ROUTE 06/07/20 07:02 06/07/20 07:04 DC Sodium Chloride 100 ml @ ud STK-MED ONCE IV 06/07/20 07:02 06/07/20 07:04 DC Sodium Chloride 250 ml @ ud STK-MED ONCE IV 06/07/20 07:02 06/07/20 07:04 DC Sodium Chloride (NS 3000ml Irr) 3,000 ml STK-MED ONCE IR 06/07/20 07:02 06/07/20 07:04 DC Fentanyl Citrate (Sublimaze) 50 mcg STK-MED ONCE .ROUTE 06/07/20 07:29 06/07/20 07:31 DC Propofol (Diprivan) 200 mg STK-MED ONCE IV 06/07/20 07:57 06/07/20 08:00 DC Tramadol HCl (Ultram) 50 mg Q6H PO 06/07/20 09:00 06/07/20 09:22 DC Tramadol HCl (Ultram) 100 mg Q6H PRN PO PAIN 4 - 6 06/07/20 09:00 06/07/20 09:22 DC Rivaroxaban (Xarelto) 10 mg DAILY PO 06/08/20 09:00 07/08/20 08:59 Docusate Sodium (Colace) 100 mg DAILY PO 06/07/20 09:00 07/07/20 08:59 Throat Lozenges (Cepacol Sore Throat Lozenge) 1 each PRN PRN MM SORE THROAT 06/07/20 09:00 07/07/20 08:59 Famotidine (Pepcid) 20 mg DAILY PO 06/07/20 09:00 07/07/20 08:59 Cefazolin Sodium/ Dextrose (Ancef 2 Gm/D5W 50ml) 2 gm Q8 IV 06/07/20 14:00 06/07/20 13:59 DC Acetaminophen/ Codeine Phosphate (Tylenol #3) 1 each TID PO 06/07/20 15:00 06/07/20 11:06 DC Hydroxychloroquine Sulfate (Plaquenil) 200 mg BID PO 06/07/20 21:00 07/07/20 20:59 Future Hold Metformin HCl (Glucophage) 500 mg BID PO 06/07/20 21:00 07/07/20 20:59 Methotrexate (Methotrexate) 50 mg Q7D IJ 06/07/20 09:30 06/07/20 11:06 DC Sertraline HCl (Zoloft) 50 mg HS PO 06/07/20 21:00 07/07/20 20:59 Acetaminophen/ Codeine Phosphate (Tylenol #4) 1 tablet Q4H PRN PO PAIN 7 - 10 06/07/20 09:30 06/07/20 11:06 DC Hydromorphone HCl (Dilaudid) 1 mg Q4H PRN IV PAIN 7 - 10 06/07/20 09:30 06/07/20 11:06 DC Hydromorphone HCl (Dilaudid) 0.2 mg Q5M PRN IV PAIN 1 - 3 06/07/20 11:30 06/07/20 17:15 DC 06/07/20 11:35 Fentanyl Citrate (Sublimaze) 12.5 mcg Q5MIN PRN IV PAIN 06/07/20 11:30 06/07/20 17:15 DC Promethazine HCl (Phenergan) 12.5 mg PRN PRN IV NAUSEA / VOMITING 06/07/20 11:30 06/07/20 13:18 DC Acetaminophen/ Codeine Phosphate (Tylenol #4) 1 tablet Q4H PO 06/07/20 11:30 07/07/20 09:29 Hydromorphone HCl (Dilaudid) 3 mg Q4H PRN IV PAIN 7 - 10 06/07/20 11:30 07/07/20 11:29 Acetaminophen/ Codeine Phosphate (Tylenol #4) 2 tablet Q4H PRN PO PAIN 7 - 10 06/07/20 11:30 07/07/20 11:29 06/07/20 15:18 Lidocaine HCl (Lidocaine 2% Vial) 500 mg STK-MED ONCE .ROUTE 06/07/20 11:10 06/07/20 11:12 DC Tranexamic Acid (Tranexamic Acid) 1,000 mg STK-MED ONCE .ROUTE 06/07/20 11:10 06/07/20 11:12 DC Ondansetron HCl (Zofran) 4 mg STK-MED ONCE .ROUTE 06/07/20 11:10 06/07/20 11:12 DC Rocuronium [place] (Rocuronium [place]) 50 mg STK-MED ONCE IV 06/07/20 11:11 06/07/20 11:12 DC Sodium Chloride 1,000 ml @ ud STK-MED ONCE .ROUTE 06/07/20 11:12 06/07/20 11:14 DC Sodium Chloride 1,000 ml @ 100 mls/hr Q10H IV 06/07/20 11:00 07/07/20 10:59 06/07/20 11:10 Cefazolin Sodium 1 gm/Sodium Chloride 100 ml @ 100 mls/hr Q8 IV 06/07/20 14:00 06/08/20 06:59 06/07/20 15:30 Course Sepsis Screening Results: Posi: NEGATIVE Sepsis Qualifier/Stage: NO DEFINITE RISK Vitals & review Data Vital Sign - Last 24 Hours 06/07/20 06/07/20 06/07/20 06/07/20 06:07 06:07 07:36 07:40 Temp 96.7 Pulse 94 79 64 Resp 18 18 18 B/P (MAP) 113/67 (82) 131/83 (99) 122/71 (88) Pulse Ox 97 100 99 O2 Delivery Room Air Room Air Nasal Canula Nasal Canula O2 Flow Rate 2 2 06/07/20 06/07/20 06/07/20 06/07/20 07:47 10:55 10:55 11:05 Temp 97.8 97.8 Pulse 79 84 82 Resp 18 16 18 B/P (MAP) 132/67 (88) 110/56 (74) 121/61 (81) Pulse Ox 97 100 100 O2 Delivery Nasal Canula Non-Rebreather Non-Rebreather O2 Flow Rate 2 15 15 10 06/07/20 06/07/20 06/07/20 06/07/20 11:15 11:25 11:35 11:45 Temp 97.6 97.6 98.0 98.6 Pulse 78 81 77 78 Resp 18 19 18 17 B/P (MAP) 113/63 (80) 142/84 (103) 137/85 (102) 144/85 (104) Pulse Ox 100 100 97 95 O2 Delivery Non-Rebreather Non-Rebreather Room Air Room Air O2 Flow Rate 10 10 06/07/20 06/07/20 06/07/20 06/07/20 11:55 12:05 12:38 13:17 Temp 98.0 97.7 Pulse 74 76 Resp 18 19 16 B/P (MAP) 137/80 (99) 134/80 (98) Pulse Ox 97 97 97 O2 Delivery Room Air Room Air Room Air Laboratory Tests Test 06/07/20 06:16 06/07/20 10:58 Bedside Glucose 141 150 Current Medications Medications (Trade) Dose Ordered Sig/Justus PRN Reason Start Time Stop Time Status Last Admin Acetaminophen/ Codeine Phosphate (Tylenol #4) 1 tablet Q4H 06/07/20 11:30 07/07/20 09:29 Acetaminophen/ Codeine Phosphate (Tylenol #4) 2 tablet Q4H PRN PAIN 7 - 10 06/07/20 11:30 07/07/20 11:29 06/07/20 15:18 Cefazolin Sodium 1 gm/Sodium Chloride 100 ml @ 100 mls/hr Q8 06/07/20 14:00 06/08/20 06:59 06/07/20 15:30 Docusate Sodium (Colace) 100 mg DAILY 06/07/20 09:00 07/07/20 08:59 Famotidine (Pepcid) 20 mg DAILY 06/07/20 09:00 07/07/20 08:59 Hydromorphone HCl (Dilaudid) 3 mg Q4H PRN PAIN 7 - 10 06/07/20 11:30 07/07/20 11:29 Hydroxychloroquine Sulfate (Plaquenil) 200 mg BID 06/07/20 21:00 07/07/20 20:59 Future Hold Metformin HCl (Glucophage) 500 mg BID 06/07/20 21:00 07/07/20 20:59 Mupirocin (Bactroban Ointment) 1 gm OT 06/07/20 06:00 07/07/20 05:59 06/07/20 06:23 Rivaroxaban (Xarelto) 10 mg DAILY 06/08/20 09:00 07/08/20 08:59 Sertraline HCl (Zoloft) 50 mg HS 06/07/20 21:00 07/07/20 20:59 Sodium Chloride 1,000 ml @ 100 mls/hr Q10H 06/07/20 11:00 07/07/20 10:59 06/07/20 11:10 Throat Lozenges (Cepacol Sore Throat Lozenge) 1 each PRN PRN SORE THROAT 06/07/20 09:00 07/07/20 08:59 LEVEL 1 SEPSIS INFECTION CRITE: Recent Invasive Procedure LEVEL 2-SIRS (LIST ALL THAT AP: HR>90/min, WBC>22005 Cardiovascular Evidence: Not Assessed or None Hematologic Evidence: None/Not assessed Hepatic Evidence: None/Not assessed Metabolic Evidence: None/Not assessed Neurological Evidence: None/Not assessed Respiratory Evidence: None/Not assessed Renal Evidence: None/Not assessed O2 Sat by Pulse Oximetry: 94 Oxygen Flow Rate: 2.00 Assessment/Plan Assessment/Plan Assessment/Plan Right knee OA- s/p right TKA post op #2 continue medications. Scheduled pain medication and PRN. PT/OT- eval and treat, WBAT RLE, walker labs scheduled; ordered CMP hospitalist consult Problems: (1) Osteoarthritis of right knee Assessment & Plan: Postoperative care per Dr. Henderson and orthopedic team. Due to his episode last night think we should watch him another day before discharge. This discussed this with orthopedic PA and we are in agreement. ICD Code: M17.11 - Unilateral primary osteoarthritis, right knee SNOMED: 631418477790755 (2) Altered mental status Assessment & Plan: Appears clear this morning but concerned he may have recurrence at home if we discharge him. Laboratories and including the liver functions look improved and he is oxygenating better. Metabolic encephalopathy from his high-dose medication for chronic pain at home, the recent surgery and hypoxia with probably some underlying and tight low sleep apnea.Recheck the lab in the morning ICD Code: R41.82 - Altered mental status, unspecified SNOMED: 335764166 (3) Hypoxia Assessment & Plan: Suspect obstructive sleep apnea, like to wean off the oxygen over the day today ICD Code: R09.02 - Hypoxemia SNOMED: 873654084 (4) Type 2 diabetes mellitus Assessment & Plan: Diabetic diet, sliding scale with meals and his oral home meds ICD Code: E11.9 - Type 2 diabetes mellitus without complications SNOMED: 80504867 (5) Hypertension, essential Assessment & Plan: Pretty good control on current medications. ICD Code: I10 - Essential (primary) hypertension SNOMED: 03650858 (6) Rheumatoid arthritis ICD Code: M06.9 - Rheumatoid arthritis, unspecified SNOMED: 44833768 (7) Chronic neuropathic pain Assessment & Plan: Taking high-dose gabapentin at the maximum dose on the home with codeine ICD Code: M79.2 - Neuralgia and neuritis, unspecified; G89.29 - Other chronic pain SNOMED: 389199068 (8) Morbid obesity Assessment & Plan: Encourage weight loss. Suspect there is some undiagnosed sleep apnea. ICD Code: E66.01 - Morbid (severe) obesity due to excess calories SNOMED: 931497084 Plan Right knee OA- s/p right TKA post op #2 continue medications. Scheduled pain medication and PRN. PT/OT- eval and treat, WBAT RLE, walker labs scheduled; ordered CMP hospitalist consult LA HERRERA MD Jun 10, 2020 15:29
[2020-06-10 17:01] VITALS: BP 120/56
[2020-06-10 19:53] VITALS: BP 140/70
[2020-06-10] MEDS ORDERED: ELAVIL ONE (20:51)
[2020-06-10] MEDS: ELAVIL PO SCH (21:02)
[2020-06-10] MEDS: ZOLOFT PO SCH (21:03)
[2020-06-11] MEDS: TYLENOL #4 PO PRN ×2 (00:45→09:43)
[2020-06-11 00:46] VITALS: BP 124/61
[2020-06-11 04:42] VITALS: BP 128/72
[2020-06-11] MEDS: NS 1000ML 1,000 ML IV SCH (05:00)
--- NOTE | 2020-06-11 05:17 | NUR ---
CPM TRIED TO PUT PT IN CPM PT SAID "DO I HAVE TO DO THAT NOW" I SAID YES TWO HOURS ON AND TWO HOURS OFF TO HELP WORK OUT THE JOINT PT SAID "ILL JUST DO IT TOMORROW BUT I WILL TELL THEM WE DID IT TONIGHT."
[2020-06-11 05:56] LABS: CALCIUM 9.2 mg/dL (8.4-10.5); CARBON DIOXIDE 25.5 mmol/L (20.0-32)
[2020-06-11 08:30] VITALS: BP 163/83
[2020-06-11] MEDS ORDERED: ASPI-178 PO (08:32)
[2020-06-11] MEDS ORDERED: Acetaminophen With Codeine PO (08:32)
--- NOTE | 2020-06-11 08:38 | PRM.DC ---
Discharge Summary Date of Discharge: Jun 11, 2020 Time of Request to Discharge: 08:32 Reason for Visit: Right TKA Additional Comments patient sitting in bed, pain controlled nurse reports he did well overnight right knee dressing intact, no s/s of infection neuros intact ambulating well with PT and walker VSS Patient History: Cerebrovascular disorder G8 FATHER, , Age:55 Hypertension G8 SISTER No known health problems G8 BROTHER G8 BROTHER G8 BROTHER G8 BROTHER G8 BROTHER G8 SISTER G8 SISTER 19 CHILD 19 CHILD 19 CHILD 19 CHILD 19 CHILD No Family History of: Alzheimer's disease Asthma Chronic obstructive pulmonary disease Congestive heart failure Diabetes insipidus Diabetes mellitus Parkinson's disease General: Alert, Oriented X3, Cooperative, No acute distress HEENT: Atraumatic, PERRLA Neck: Supple Lungs: Clear to auscultation, Normal air movement Heart: Regular rate Abdomen: Normal bowel sounds Extremities: No clubbing, No cyanosis, No edema, Normal pulses, Other (right knee has full extension, 85 degrees flexion. neuros intact. dressing intact) Skin: No rashes, No breakdown, No significant lesion Neuro: Normal gait Psych/Mental Status: Mental status NL, Mood NL Scheduled Amitriptyline Hcl (Amitriptyline Hcl), 2 TAB PO HS, (Reported) Aspirin (Lo-Dose Aspirin EC), 81 MG PO BID Cilostazol (Cilostazol), 0.5 TAB PO BID, (Reported) Gabapentin (Gabapentin), 2 TAB PO TID, (Reported) Hydroxychloroquine Sulfate (Hydroxychloroquine Sulfate), 1 TAB PO BID, (Reported) Lisinopril (Lisinopril), 1 TAB PO DAILY, (Reported) Metformin Hcl (Metformin Hcl), 1 TAB PO BID, (Reported) Methotrexate Sodium (Methotrexate), 50 MG IJ Q7D, (Reported) Sertraline Hcl (Zoloft), 1 TAB PO HS, (Reported) Testosterone Cypionate (Testosterone Cypionate), 200 MG IM Q7D, (Reported) Scheduled PRN Hydroxyzine Hcl (Hydroxyzine Hcl), 2 TAB PO TID PRN for ANXIETY, (Reported) [Acetaminophen With Codeine], 1 TABLET PO Q4H PRN for PAIN 4 - 6 Discontinued Medications Acetaminophen With Codeine (Tylenol-Cod #3 Tablet), 1 TAB PO TID, (Reported) Discontinued Reason: HOLD Sepsis Evaluation @ Discharge Vital Sign - Last 24 Hours 06/07/20 06/07/20 06/07/20 06/07/20 06:07 06:07 07:36 07:40 Temp 96.7 Pulse 94 79 64 Resp 18 18 18 B/P (MAP) 113/67 (82) 131/83 (99) 122/71 (88) Pulse Ox 97 100 99 O2 Delivery Room Air Room Air Nasal Canula Nasal Canula O2 Flow Rate 2 2 06/07/20 06/07/20 06/07/20 06/07/20 07:47 10:55 10:55 11:05 Temp 97.8 97.8 Pulse 79 84 82 Resp 18 16 18 B/P (MAP) 132/67 (88) 110/56 (74) 121/61 (81) Pulse Ox 97 100 100 O2 Delivery Nasal Can[place] Non-Rebreather Non-Rebreather O2 Flow Rate 2 15 15 10 06/07/20 06/07/20 06/07/20 06/07/20 11:15 11:25 11:35 11:45 Temp 97.6 97.6 98.0 98.6 Pulse 78 81 77 78 Resp 18 19 18 17 B/P (MAP) 113/63 (80) 142/84 (103) 137/85 (102) 144/85 (104) Pulse Ox 100 100 97 95 O2 Delivery Non-Rebreather Non-Rebreather Room Air Room Air O2 Flow Rate 10 10 06/07/20 06/07/20 06/07/20 06/07/20 11:55 12:05 12:38 13:17 Temp 98.0 97.7 Pulse 74 76 Resp 18 19 16 B/P (MAP) 137/80 (99) 134/80 (98) Pulse Ox 97 97 97 O2 Delivery Room Air Room Air Room Air Laboratory Tests Test 06/07/20 06:16 06/07/20 10:58 Bedside Glucose 141 150 Current Medications Medications (Trade) Dose Ordered Sig/Justus PRN Reason Start Time Stop Time Status Last Admin Acetaminophen/ Codeine Phosphate (Tylenol #4) 1 tablet Q4H 06/07/20 11:30 07/07/20 09:29 Acetaminophen/ Codeine Phosphate (Tylenol #4) 2 tablet Q4H PRN PAIN 7 - 10 06/07/20 11:30 07/07/20 11:29 06/07/20 15:18 Cefazolin Sodium 1 gm/Sodium Chloride 100 ml @ 100 mls/hr Q8 06/07/20 14:00 06/08/20 06:59 06/07/20 15:30 Docusate Sodium (Colace) 100 mg DAILY 06/07/20 09:00 07/07/20 08:59 Famotidine (Pepcid) 20 mg DAILY 06/07/20 09:00 07/07/20 08:59 Hydromorphone HCl (Dilaudid) 3 mg Q4H PRN PAIN 7 - 10 06/07/20 11:30 07/07/20 11:29 Hydroxychloroquine Sulfate (Plaquenil) 200 mg BID 06/07/20 21:00 07/07/20 20:59 Future Hold Metformin HCl (Glucophage) 500 mg BID 06/07/20 21:00 07/07/20 20:59 Mupirocin (Bactroban Ointment) 1 gm OT 06/07/20 06:00 07/07/20 05:59 06/07/20 06:23 Rivaroxaban (Xarelto) 10 mg DAILY 06/08/20 09:00 07/08/20 08:59 Sertraline HCl (Zoloft) 50 mg HS 06/07/20 21:00 07/07/20 20:59 Sodium Chloride 1,000 ml @ 100 mls/hr Q10H 06/07/20 11:00 07/07/20 10:59 06/07/20 11:10 Throat Lozenges (Cepacol Sore Throat Lozenge) 1 each PRN PRN SORE THROAT 06/07/20 09:00 07/07/20 08:59 Course Sepsis Screening Results: Posi: NEGATIVE Sepsis Qualifier/Stage: NO DEFINITE RISK Vitals & review Data Vital Sign - Last 24 Hours 06/07/20 06/07/20 06/07/20 06/07/20 06:07 06:07 07:36 07:40 Temp 96.7 Pulse 94 79 64 Resp 18 18 18 B/P (MAP) 113/67 (82) 131/83 (99) 122/71 (88) Pulse Ox 97 100 99 O2 Delivery Room Air Room Air Nasal Canula Nasal Canula O2 Flow Rate 2 2 06/07/20 06/07/20 06/07/20 06/07/20 07:47 10:55 10:55 11:05 Temp 97.8 97.8 Pulse 79 84 82 Resp 18 16 18 B/P (MAP) 132/67 (88) 110/56 (74) 121/61 (81) Pulse Ox 97 100 100 O2 Delivery Nasal Canula Non-Rebreather Non-Rebreather O2 Flow Rate 2 15 15 10 06/07/20 06/07/20 06/07/20 06/07/20 11:15 11:25 11:35 11:45 Temp 97.6 97.6 98.0 98.6 Pulse 78 81 77 78 Resp 18 19 18 17 B/P (MAP) 113/63 (80) 142/84 (103) 137/85 (102) 144/85 (104) Pulse Ox 100 100 97 95 O2 Delivery Non-Rebreather Non-Rebreather Room Air Room Air O2 Flow Rate 10 10 06/07/20 06/07/20 06/07/20 06/07/20 11:55 12:05 12:38 13:17 Temp 98.0 97.7 Pulse 74 76 Resp 18 19 16 B/P (MAP) 137/80 (99) 134/80 (98) Pulse Ox 97 97 97 O2 Delivery Room Air Room Air Room Air Laboratory Tests Test 06/07/20 06:16 06/07/20 10:58 Bedside Glucose 141 150 Current Medications Medications (Trade) Dose Ordered Sig/Justus PRN Reason Start Time Stop Time Status Last Admin Acetaminophen/ Codeine Phosphate (Tylenol #4) 1 tablet Q4H 06/07/20 11:30 07/07/20 09:29 Acetaminophen/ Codeine Phosphate (Tylenol #4) 2 tablet Q4H PRN PAIN 7 - 10 06/07/20 11:30 07/07/20 11:29 06/07/20 15:18 Cefazolin Sodium 1 gm/Sodium Chloride 100 ml @ 100 mls/hr Q8 06/07/20 14:00 06/08/20 06:59 06/07/20 15:30 Docusate Sodium (Colace) 100 mg DAILY 06/07/20 09:00 07/07/20 08:59 Famotidine (Pepcid) 20 mg DAILY 06/07/20 09:00 07/07/20 08:59 Hydromorphone HCl (Dilaudid) 3 mg Q4H PRN PAIN 7 - 10 06/07/20 11:30 07/07/20 11:29 Hydroxychloroquine Sulfate (Plaquenil) 200 mg BID 06/07/20 21:00 07/07/20 20:59 Future Hold Metformin HCl (Glucophage) 500 mg BID 06/07/20 21:00 07/07/20 20:59 Mupirocin (Bactroban Ointment) 1 gm OT 06/07/20 06:00 07/07/20 05:59 06/07/20 06:23 Rivaroxaban (Xarelto) 10 mg DAILY 06/08/20 09:00 07/08/20 08:59 Sertraline HCl (Zoloft) 50 mg HS 06/07/20 21:00 07/07/20 20:59 Sodium Chloride 1,000 ml @ 100 mls/hr Q10H 06/07/20 11:00 07/07/20 10:59 06/07/20 11:10 Throat Lozenges (Cepacol Sore Throat Lozenge) 1 each PRN PRN SORE THROAT 06/07/20 09:00 07/07/20 08:59 LEVEL 1 SEPSIS INFECTION CRITE: Recent Invasive Procedure LEVEL 2-SIRS (LIST ALL THAT AP: HR>90/min, WBC>14735 Cardiovascular Evidence: Not Assessed or None Hematologic Evidence: None/Not assessed Hepatic Evidence: None/Not assessed Metabolic Evidence: None/Not assessed Neurological Evidence: None/Not assessed Respiratory Evidence: None/Not assessed Renal Evidence: None/Not assessed O2 Sat by Pulse Oximetry: 92 Oxygen Flow Rate: 2.00 Plan Problems: (1) Osteoarthritis of right knee Status: Resolved ICD Code: M17.11 - Unilateral primary osteoarthritis, right knee SNOMED: 292233354827370 (2) Metabolic encephalopathy Status: Resolved ICD Code: G93.41 - Metabolic encephalopathy SNOMED: 34476609 (3) Type 2 diabetes mellitus Status: Chronic ICD Code: E11.9 - Type 2 diabetes mellitus without complications SNOMED: 64544354 Discharge Disposition: Stable Plan discharge home today continue home medications, prescription for Tylenol #4 q 4-6 hours PRN, ASA 81 mg BID x30 days keep dressing intact follow up in clinic on Sunday monitor for s/s of infection JENNIFER SINGH NP Jun 11, 2020 08:38
[2020-06-11] MEDS: XARELTO PO SCH (09:18)
[2020-06-11] MEDS: GLUCOPHAGE PO SCH (09:18)
[2020-06-11] MEDS: COLACE PO SCH (09:18)
[2020-06-11] MEDS: PEPCID PO SCH (09:18)
[2020-06-11] MEDS: NEURONTIN PO SCH (09:18)
[2020-06-11 09:55] VITALS: BP 163/83
--- NOTE | 2020-06-11 09:55 | NUR ---
DISCHARGE PATIENT GIVEN DISCHARGE PACKET, EDUCATION ON PREVENA, S/S OF INFECTION AND WHEN TO SEEK MEDICAL ATTENTION, FOLLOWUP APPT DATE. PATIENT VERBALIZED UNDERSTANDING. PATIENT IS STABLE WITH NO SIGNS OF DISTRESS NOTED. IV DC'D, NO REDNESS OR SWELLING NOTED. PATIENT TAKEN TO PRIVATE VEHICLE DRIVEN BY SPOUSE VIA WHEELCHAIR BY THIS NURSE. RELINQUISHING CARE OF PATIENT AT THIS TIME.
== END 2020-06-11 10:00 | disposition home health service (06) | DRG 469 ==
LOC: MS 12:28
PROVIDERS: ADMIT Orthopaedic Surgery; ATTEND Orthopaedic Surgery
PROC: 3E0T3BZ Introduction of Anesthetic Agent into Peripheral Nerves and Plexi, Percutaneous Approach (ICD-10-PCS; 2020-06-07)
PROC: 0SRC0J9 Replacement of Right Knee Joint with Synthetic Substitute, Cemented, Open Approach (ICD-10-PCS; principal; 2020-06-07 08:11)
DX: M17.11 Unilateral primary osteoarthritis, right knee (principal); G92 Toxic encephalopathy; D62 Acute posthemorrhagic anemia; R44.3 Hallucinations, unspecified; M06.9 Rheumatoid arthritis, unspecified; R09.02 Hypoxemia; G89.29 Other chronic pain; M54.9 Dorsalgia, unspecified; T50.995A Adverse effect of other drugs, medicaments and biological substances, initial encounter; E11.40 Type 2 diabetes mellitus with diabetic neuropathy, unspecified; E66.01 Morbid (severe) obesity due to excess calories; J45.909 Unspecified asthma, uncomplicated; F41.9 Anxiety disorder, unspecified; F32.9 Major depressive disorder, single episode, unspecified; I10 Essential (primary) hypertension; Z87.891 Personal history of nicotine dependence; Y92.098 Other place in other non-institutional residence as the place of occurrence of the external cause; Z82.49 Family history of ischemic heart disease and other diseases of the circulatory system; Z82.3 Family history of stroke; Z68.37 Body mass index [BMI] 37.0-37.9, adult; Z71.3 Dietary counseling and surveillance
CPT/HCPCS: 36415; 36600; 73560; 80053; 82140; 82803; 82948; 83036; 85025; 85027; 87070; 93005; 97161; 97166; A4217; C1713; C1776; G0378; J0690; J1100; J1170; J2001; J2250; J2405; J3010; J3490; J7030; J7050; J7120; 97116-GP; 97535-GO; 97760-GP; C9290; J1630

== ENCOUNTER 2020-09-23 05:50 | Day surgery (SDC) | payer MEDICARE ==
[2020-09-22 15:16] VITALS: BP 121/72
[2020-09-22 15:37] LABS: BASOPHIL % 0.4 % (0.0-0.2); EOSINOPHIL # 0.3 10^3/uL (0.0-0.2); EOSINOPHIL % 3.1 % (0.0-5.0); LYMPHOCYTES # 2.84 10^3/uL1 (1.0-4.8); MEAN CORP HGB 30.3 pg (26-34); MONOCYTES # 0.6 10^3/uL (0.3-0.8); NEUTROPHIL # 5.7 10^3/uL (1.8-7.7); NEUTROPHILS % 59.9 % (41.0-85.0); PLATELET COUNT 310 10^3/uL (150-400); RED CELL DISTRIBUTION WIDTH 13.8 % (11.5-14.5)
[2020-09-22 15:55] LABS: CARBON DIOXIDE 23.7 mmol/L (20.0-32)
[~2020-09-23] VITALS: Ht 172.7 cm; Wt 110.7 kg
[2020-09-23] VITALS (18 sets, daily range): BP systolic 85–143; BP diastolic 48–74
[~2020-09-23 05:50] MED LIST changes: +ASPI-178 PO; +Acetaminophen With Codeine PO; +BACTROBAN OINTMENT TP ONE; -BACTROBAN OINTMENT TP SCH; -DIPRIVAN IV ONE; -EXPAREL 266 MG/20 ML VIAL IJ ONE; +NS 1000ML 1,000 ML ONE; -NS 100ML 100 ML IV ONE; -NS 3000ML IRR IR ONE; -SODIUM CHLORIDE IRR BOTTLE IR ONE; -SUBLIMAZE ONE; -VERSED ONE; -WATER ONE
[2020-09-23] MEDS ORDERED: EXPAREL 266 MG/20 ML VIAL IJ ONE (05:51)
[2020-09-23] MEDS ORDERED: NS 1000ML 1,000 ML IV SCH (06:00)
[2020-09-23] MEDS ORDERED: BACTROBAN OINTMENT TP ONE (06:00)
[2020-09-23] MEDS ORDERED: VENTOLIN IH ONE (06:37)
[2020-09-23] MEDS ORDERED: VENTOLIN IH SCH (07:00)
[2020-09-23] MEDS ORDERED: NS 100ML 100 ML IV ONE ×2 (07:32→07:46)
[2020-09-23] MEDS ORDERED: NS 250ML 250 ML IV ONE (07:32)
[2020-09-23] MEDS ORDERED: NS 3000ML IRR IR ONE (07:32)
[2020-09-23] MEDS ORDERED: WATER ONE (07:32)
[2020-09-23] MEDS ORDERED: SODIUM CHLORIDE IRR BOTTLE IR ONE (07:32)
[2020-09-23] MEDS ORDERED: ALBU18HF IH (07:33)
[2020-09-23] MEDS ORDERED: LIDOCAINE 2% VIAL ONE (07:46)
[2020-09-23] MEDS ORDERED: TORADOL ONE (07:46)
[2020-09-23] MEDS ORDERED: ZOFRAN ONE (07:46)
[2020-09-23] MEDS ORDERED: ROCURONIUM BROMIDE IV ONE (07:46)
[2020-09-23] MEDS ORDERED: EPHEDRINE SULFATE ONE (07:46)
[2020-09-23] MEDS ORDERED: BRIDION IV ONE (07:46)
[2020-09-23] MEDS ORDERED: DECADRON ONE (07:47)
[2020-09-23] MEDS ORDERED: DIPRIVAN IV ONE (07:47)
[2020-09-23] MEDS ORDERED: KETAMINE HCL-Non-Preferred ONE (07:47)
[2020-09-23] MEDS ORDERED: QUELICIN ONE (07:47)
[2020-09-23] MEDS ORDERED: NAROPIN 0.2% 40 MG/20 ML VIAL ONE (07:48)
[2020-09-23] MEDS ORDERED: TYLENOL #4 ONE (11:54)
[2020-09-23] MEDS ORDERED: TYLENOL #4 PO ONE (11:55)
[2020-09-23] MEDS ORDERED: SUBLIMAZE IV PRN (12:00)
[2020-09-23] MEDS ORDERED: VENTOLIN IH PRN (12:00)
--- NOTE | 2020-09-23 12:25 | DIREP ---
PROCEDURE:XRAY KNEE 2 VWS-LT COMPARISON:None. INDICATIONS:LEFT TOTAL KNEE FINDINGS: BONES:Postsurgical change consistent with left knee arthroplasty. Hardware is well seated and intact. No aggressive osseous lesions. JOINTS:Anatomic alignment about the left knee arthroplasty.. SOFT TISSUES:Soft tissue swelling and surgical jarad overlie the knee consistent with recent intervention. Small suprapatellar joint effusion is seen. OTHER:Bandage overlies the knee. CONCLUSION: 1. Postsurgical change consistent with recent left knee arthroplasty. Hardware is well seated and intact. Dictated by: Gregory James MD on 09/23/2020 at 12:23 PM
--- NOTE | 2020-09-23 13:09 | OPH ---
DATE OF SURGERY: 09/23/2020 PREOPERATIVE DIAGNOSIS: Osteoarthritis of the left knee. POSTOPERATIVE DIAGNOSIS: Osteoarthritis of the left knee. OPERATIVE PROCEDURE: Left total knee arthroplasty using Medacta Sphere knee, size 5+ femur, a size 5 tibia, 10 mm insert. All components were cemented. SURGEON: Noah Henderson MD ANESTHESIA: General endotracheal. TOURNIQUET TIME: 76 minutes at 300 mmHg. DRAINS: None. BLOOD LOSS: 400 DESCRIPTION OF INDICATIONS: The patient is a 60-year-old male with a 3-year history of pain about the left knee secondary to osteoarthritis. He has taken different anti-inflammatories through the years. He has had cortisone injections without permanent relief. He complains of pain with just household ambulation as well as night pain and limping. He has tried formal physical therapy as well as [id number] bracing. Exam shows that he has -5 degrees of full extension with 120 degrees of flexion. There is moderate crepitation. His ligaments are all intact. He has no severe varus or valgus malalignment, 1+ effusion. The x-rays show that he is [id number] medially with some patellofemoral narrowing and osteophytes. Because of continued pain that limits his daily activities, he was taken to the operating room today for left total knee arthroplasty. DESCRIPTION OF PROCEDURE: The patient was placed on the operating table and given a general endotracheal anesthetic. The patient had a well-padded tourniquet placed around the left thigh. The left lower extremity was sterilely prepped and draped. The patient had the leg exsanguinated with an Esmarch. The tourniquet was inflated to 300 mmHg. The knee was flexed to 90 degrees. An anterior incision was made about the knee. Full thickness flaps were developed medially and laterally. A medial parapatellar arthrotomy was performed and the patella was deviated laterally. The patient had medial and lateral meniscectomies performed and the anterior and posterior cruciate ligaments were removed. The capsule and the MCL were released around the posterior medial corner of the proximal tibia. The patient had the osteophytes about the distal femur removed with a rongeur. An intramedullary drill hole was made about the distal femur. The distal femoral cutting block which was attached to the intramedullary josy was placed against the distal femur after the josy was placed down the shaft of the femur. It was set at 6 degrees of valgus and 9 mm. The cutting block was pinned into position. The distal femoral cut was then made with the power saw. The patient then had the tibia subluxed anteriorly. Medial and lateral meniscectomies were completed. Intramedullary drill hole was made about the proximal tibia. The cutting block for the tibia which was attached to an intramedullary josy was then positioned against the proximal medial tibia after the josy was placed down the tibial shaft. The cutting block was adjusted for rotation, varus valgus depth of cut as well as posterior slope. Once all the parameters were met, the cutting block was pinned into position. The proximal tibial cut was made at 8 mm below the least involved surface, which was laterally. The patient then had the cutting block removed. The #2 femoral jig was placed about the distal femur and it measured a size 5+. The 5+ cutting block was placed about the distal femur and held into position with 2 pins and 2 screws. The anterior and posterior femoral cuts as well as the chamfer cuts were then made. The patient had the flexion, extension blocks used and the 10 mm block had full extension with 90 degrees of flexion and good stability. The tibia again was exposed and subluxed anteriorly with the knee in 90 degrees of flexion. The size 5 tibial trial component was placed about the proximal tibia and held into position with multiple pins. The central drill hole was made. The cruciate punch was used to stabilize the tibial component. The patient then had a trial reduction done with a 5 tibia, a 10 mm insert and a 5+ femur. The knee went out into full extension. He had 120 degrees of flexion. There was excellent medial and lateral stability throughout the range of motion as well as excellent anterior, posterior stability at 90 degrees of flexion. There was good tracking of the patella. The patella was everted. The peripheral osteophytes were trimmed. The peripheral edges were cauterized. The patient had the final medial and lateral femoral drill holes made. The femoral sulcus cut was then made. The patient then had the trial tibial components removed. The wounds were then copiously irrigated and the bone ends were dried. A size 5 tibial component was cemented into position. The 10 mm insert was impacted and secured with an anterior screw. The size 5+ femoral component was likewise cemented. All the excess cement was removed with curettes. The joint was irrigated with Betadine-containing solution for 3 minutes. Once the cement was hard, then the Betadine solution irrigated. The tourniquet was released, the bleeding was controlled with the Aquamantys device. The capsule was closed with #2 PDS in interrupted [id number] manner. The subcutaneous was closed with 2-0 Monocryl barbed in a running manner. The skin was closed with jarad. A suction Prevena type dressing was applied, reinforced with 4 x 4s, Kerlix and an Bernabe wrap. The patient was extubated in the operating room, sent to recovery in stable condition. Noah Henderson MD DR: ANIA/nicola JOB# [id number]
[2020-09-23] MEDS ORDERED: NS 1000ML 2,000 ML ONE (14:06)
[2020-09-23] MEDS ORDERED: ACET1TAB38 PO (14:13)
[2020-09-23] MEDS ORDERED: ASPI-929 PO (14:25)
[2020-09-23] MEDS ORDERED: CYCL10TA2 PO (14:25)
[2020-09-23] MEDS ORDERED: CEPH-350 PO (14:25)
== END 2020-09-23 15:00 | disposition home or self-care (01) ==
LOC: SDC 05:50
PROVIDERS: ATTEND Orthopaedic Surgery
DX: M17.12 Unilateral primary osteoarthritis, left knee (principal); M25.762 Osteophyte, left knee; I10 Essential (primary) hypertension; E66.3 Overweight; J45.909 Unspecified asthma, uncomplicated; M06.9 Rheumatoid arthritis, unspecified; E11.9 Type 2 diabetes mellitus without complications; M81.0 Age-related osteoporosis without current pathological fracture; F17.210 Nicotine dependence, cigarettes, uncomplicated; Z98.890 Other specified postprocedural states; Z68.37 Body mass index [BMI] 37.0-37.9, adult; Z90.49 Acquired absence of other specified parts of digestive tract; Z82.3 Family history of stroke; Z82.49 Family history of ischemic heart disease and other diseases of the circulatory system; Z79.899 Other long term (current) drug therapy; Z79.84 Long term (current) use of oral hypoglycemic drugs
CPT/HCPCS: 27447; 36415; 64447; 73560; 76942; 80053; 82948 ×2; 83036; 85025; 97116; 97162; A4217 ×2; C1713; C1776; J0330; J0690; J1100; J1885; J2001; J2405; J2795; J3490 ×2; J7030 ×2; J7050 ×4; J7613; C9290